=== PATIENT | male | born 1965 | race Caucasian/White ===

== ENCOUNTER 2025-05-20 13:36 | Inpatient (IN) | payer MEDICARE, SELFPAY ==
[2025-05-20 13:36] VITALS: BP 150/90; PULSE 89; RESP 18; TEMP 37.1; O2SAT 100; BMI 37.0
--- NOTE | 2025-05-20 14:09 | US_ITS ---
PROCEDURE: GALLBLADDER 05/20/2025 REASON FOR EXAM: PAIN RUQ TECHNIQUE: Procedure Code: USGB Modality: US Procedure: GALLBLADDER FINDINGS: Liver: Length 16.8 cm, mildly enlarged. Medial left hepatic lobe lesion measuring 2.5 x 2.2 x 1.7 cm appears hypoechoic and solid without posterior acoustic enhancement. A second left hepatic lesion measuring 1.4 x 1.4 x 1.0 cm appears cystic with posterior through transmission. Background hepatic echogenicity and color flow are within normal limits. Gallbladder: Length 8.1 cm. Wall thickness 1.8 mm. Trace pericholecystic fluid present. No gallstones or wall thickening. Sonographic Land sign negative. Bile ducts: Common bile duct measures 4.5 mm, within normal limits. No intrahepatic biliary duct dilatation. Pancreas: Poorly visualized due to overlying bowel gas. Right kidney: Size 10.5 x 3.5 x 5.4 cm. Cortical thickness approximately 1.9 cm. Two simple cysts, largest 7.1 x 7.0 x 6.7 cm. No calculi or hydronephrosis. Ascites: None visualized. US/Gallbladder IMPRESSION: Medial left hepatic lobe 2.5 x 2.2 x 1.7 cm solid hypoechoic lesion without pos terior through transmission likely indicates a true solid hepatic lesion rather than a cyst. Additional 1.4 x 1.4 x 1.0 cm simple cyst in the left hepatic lobe. Trace pericholecystic fluid with normal gallbladder wall and negative Land si gn may represent nonspecific or reactive changes; no sonographic evidence of acute cholecystitis. Common bile duct within normal limits at 4.5 mm. Right renal cysts without hydronephrosis or nephrolithiasis. Recommend multiphasic contrast-enhanced MRI of the liver (preferred) or contras t-enhanced CT for characterization of the solid hepatic lesion. Correlate with liver function tests and relevant tumor markers (AFP, CEA, CA 19-9) as clinically indicated. Comparison with prior imaging if available. Reading Location: [address]
--- NOTE | 2025-05-20 14:10 | ED.VIS.GI ---
HPI HPI - GI History of Present Illness Chief Complaint: Abd Pain Informant: patient and family Narrative Narrative: Patient is a 59-year-old male with a history of pancreatitis presenting with abdominal pain. Patient is accompanied by his who is supplementing history. - Reports intermittent abdominal pain for the past week, initially localized to the mid-abdomen and now radiating to the RUQ. - Pain onset is typically about 30 minutes after eating and is described as steady. - This morning, pain worsened significantly, making it difficult to breathe and talk. - Denies radiation to the back or shoulder. - Associated symptoms include frequent burping and one episode of emesis at the onset of pain; denies ongoing nausea. - Reports difficulty with bowel movements, having not had a bowel movement in two days; took a laxative with minimal relief. - Denies hematochezia, melena, dysuria, cough, or fever. - Has not consumed alcohol in several years; pain exacerbated after drinking a non-alcoholic beverage. - History of pancreatitis several years ago, reportedly attributed to alcohol use. - Denies any previous abdominal surgeries. [facility] Medical History (Updated 05/20/25 @ 18:[address] Ric Johnson MD) Hypertension Home Medications ?Medication ?Instructions ?Recorded ?Last Taken ?Type amlodipine 10 mg tablet 10 mg PO DAILY 05/20/25 Unknown History Allergy/AdvReac Type Severity Reaction Status Date / Time Penicillins (PCN) Allergy Intermediate PT UNSURE Verified 05/20/25 13:38 OF REACTION Social History Smoking Status: Current every day smoker tobacco type: smokeless tobacco ROS ROS ED Constitutional Constitutional ED: Denies chills or fever(s) Eyes Eyes: Denies change in vision or diplopia ENT ENT ED: Denies rhinorrhea or sore throat Cardiovascular Cardiovascular: Denies chest pain or palpitations Respiratory/Chest Respiratory/Chest: Reports other Details: Dyspneic when pain is bad and hurts more in his abdomen to breathe ; Denies cough Gastrointestinal Gastrointestinal: Reports as per HPI, abdominal pain, nausea and vomiting; Denies diarrhea, hematemesis, hematochezia or melena Genitourinary Genitourinary ED: Denies dysuria or hematuria Musculoskeletal Musculoskeletal: Denies back pain or neck pain Integumentary Denies abscess or rash Neurologic Neurologic: Denies headache(s), paresthesias or weakness Psychiatric Psychiatric: Denies anxiety or suicidal thoughts EXAM Physical Exam Const Vital Signs: 05/20/25 13:36 05/20/25 15:36 05/20/25 17:00 Temperature 98.7 F Temperature Source Oral Pulse Rate 89 66 85 Respiratory Rate 18 16 15 Blood Pressure 150/90 H 122/78 H 128/73 H Blood Pressure Mean 110 92 91 Pulse Ox 100 96 99 Oxygen Delivery Method Room Air Room Air Room Air 05/20/25 18:59 Temperature 99.2 F H Temperature Source Pulse Rate 95 Respiratory Rate 20 H Blood Pressure 138/87 H Blood Pressure Mean 104 Pulse Ox 100 Oxygen Delivery Method Positive well nourished and well developed General Appearance ED: well developed and NAD HEENT Reports moist mucous membranes normocephalic and atraumatic Eyes PERRL and EOMs intact bilaterally Neck full ROM and supple Resp normal respiratory effort and clear to auscultation bilaterally Cardio regular rate, regular rhythm and no murmurs GI non-distended GI Narrative: Very tender in the right upper quadrant positive Land, also tender in epigastrium but not as bad otherwise benign abdomen. No pulsatile mass. No distention. No Hammon sign. Auscultation: normoactive bowel sounds Palpation: soft Back/Spine no CVA tenderness General Back: other FROM Extremity normal to inspection General Extremety ED: Negative for edema, pulses abnormal or tenderness General Extremity: Negative for edema or pulses abnormal Neuro oriented x3, CN's II-XII intact bilaterally and no sensory deficits noted Sensorium / Orientation: awake and alert Motor Exam: strength 5/5 throughout Psych mental status grossly normal and thought process normal Skin no rashes or lesions noted and no wounds MDM MDM MDM Narrative Medical decision making narrative: Assessment: The patient is a 59-year-old male with prior episode of pancreatitis several years ago presenting for one week of post-prandial right upper quadrant abdominal pain, acutely worse this morning and pleuritic with deep inspiration. Differential considered included biliary pathology, upper GI causes, kidney stone, constipation, and pneumonia; kidney stone, constipation, and pneumonia are less likely based on history and imaging. Elevated lipase (266) and CT findings of an ill-defined, inflamed pancreatic head support acute pancreatitis as the most likely diagnosis. Indeterminate hepatic and pancreatic lesions noted on imaging require further inpatient evaluation. Plan: - IV morphine administered for analgesia - IV ketorolac administered - IV fluids given - Empiric antibiotics initiated - Admit to hospital for further imaging and gastroenterology evaluation of acute pancreatitis with indeterminate hepatic/pancreatic lesions Diagnostics: - Labs: WBC 13.2 K/?L with left shift, no bandemia; lipase 266 U/L (ULN 75); abnormal liver enzymes (values not specified); urinalysis normal - Chest X-ray, two views: no acute pneumonia; radiology notes infiltrate vs atelectasis, more consistent with atelectasis given exam - Gallbladder ultrasound: pericholecystic fluid present; no cholelithiasis or acute cholecystitis; ~2 cm indeterminate hepatic soft-tissue mass - CT abdomen/pelvis with IV contrast: ill-defined enlarged pancreatic head with multilobulated hypodense lesion and surrounding inflammation consistent with acute pancreatitis, possible developing pseudocyst/necrosis; upstream ductal dilation?cannot exclude pancreatic head neoplasm; wedge-shaped peripheral hepatic hyperenhancing foci?differential perfusion abnormality vs infectious vs metastatic Reevaluations: - After IV morphine, ketorolac, and fluids, pain improved and patient resting comfortably PROBLEMS ADDRESSED - [x] Patient presents with a problem that potentially represents a highly morbid condition with a possible threat to life or bodily function: Acute pancreatitis; Hepatic lesion DATA REVIEWED AND ANALYZED Category 1 - Additional history was required and obtained from: - [ ] Family/Friends - [ ] EMS - [ ] PCP/Specialist - Prior external documentation reviewed: - [ ] H&P - [ ] Clinic - [ ] Director Regulatory Affairs - [ ] DC Summary - [ ] Procedure - [ ] PDMP - Prior test results reviewed: - [ ] Serum labs - [ ] Radiographs - [ ] EKGs - [x] Tests were ordered and the results were independently reviewed by me: Chest x-ray; Ultrasound of the gallbladder; CT scan with IV contrast - [ ] Tests considered but not ordered Category 2 - [x] Tests were independently interpreted by me: - Chest x-ray: Two-view chest x-ray showed normal findings with no evidence of acute pneumonia and suggested atelectasis when correlated with exam findings, independently interpreted by Ric ty. - Ultrasound of the gallbladder: Demonstrated pericholecystic fluid without signs of acute cholecystitis or cholelithiasis and revealed an approximately 2 centimeter soft tissue mass in the liver, independently interpreted by Ric ty. - CT scan with IV contrast: Revealed an ill-defined pancreatic head enlargement with a multilobulated, hypodense lesion and surrounding inflammation consistent with acute pancreatitis (possibly developing pseudocyst or necrosis). Radiology also noted upstream ductal dilation?raising concern for an underlying pancreatic head neoplasm?and identified wedge-shaped peripheral hepatic hyperenhancing foci (differential includes hepatic abscess versus perfusion-related abnormality), independently interpreted by me, Ric Johnson. Category 3 - Discussion of management with another professional: - [x] Admitting service ? Discussed admission and further evaluation with the hospitalist for additional workup given the concerning imaging and laboratory findings. PATIENT MANAGEMENT - [x] Considered hospitalization or emergent surgery/procedure: Admission was considered and planned for further evaluation given the imaging findings suggestive of acute pancreatitis with possible complications and the indeterminate hepatic lesion. - [x] Controlled parenteral medications or medications requiring intensive monitoring were administered: Morphine was administered for pain control. - [ ] Patient received controlled parenteral medications by EMS that required continued intensive monitoring in the emergency department History & Record Review Discussion w/independent historian: Patient, Family and Significant other Lab Data Attestation: I reviewed the patient's lab results. Labs: Laboratory Results - last 24 hr 05/20/25 05/20/25 13:54 15:55 WBC 13.2 H RBC 5.43 Hgb 16.0 Hct 45.2 MCV 83.2 MCH 29.5 MCHC 35.4 RDW Std Deviation 38.6 RDW Coeff of Malia 12.8 Plt Count 330 MPV 9.3 Immature Gran % (Auto) 0.500 Neut % (Auto) 80.9 H Lymph % (Auto) 11.3 L [place] % (Auto) 5.5 Eos % (Auto) 1.5 Baso % (Auto) 0.3 Absolute Neuts (auto) 10.7 H Absolute Lymphs (auto) 1.50 Nucleated RBC % 0 Sodium 137 Potassium 3.6 Chloride 98 Carbon Dioxide 26.4 Anion Gap 12 BUN 14 Creatinine 0.86 Estim Creat Clear Calc 89.71 Est GFR (MDRD) Non-Af 101 BUN/Creatinine Ratio 16.7 Glucose 139 H Calcium 9.3 Total Bilirubin 0.50 AST 16 ALT 16 Alkaline Phosphatase 74 Total Protein 7.5 Albumin 4.3 Globulin 3.2 Albumin/Globulin Ratio 1.3 Lipase 266 H Urine Color Yellow Urine Clarity Clear Urine pH 6.0 Ur Specific Rolfe 1.020 Urine Protein 30 H Urine Glucose (UA) Normal Urine Ketones 5 H Urine Occult Blood Negative Urine Nitrite Negative Urine Bilirubin Negative Urine Urobilinogen 1 H Ur Leukocyte Esterase Negative Urine RBC 0 SEEN Urine WBC 0-5 SEEN Ur Squamous Epith Cells 0 SEEN Urine Bacteria RARE Urine Mucus 2+ Radiography Diagnostic Testing: Clinical Impression(s) from Imaging Studies Gallbladder Ultrasound 05/20/25 14:09 IMPRESSION: Medial left hepatic lobe 2.5 x 2.2 x 1.7 cm solid hypoechoic lesion without posterior through transmission likely indicates a true solid hepatic lesion rather than a cyst. Additional 1.4 x 1.4 x 1.0 cm simple cyst in the left hepatic lobe. Trace pericholecystic fluid with normal gallbladder wall and negative Land sign may represent nonspecific or reactive changes; no sonographic evidence of acute cholecystitis. Common bile duct within normal limits at 4.5 mm. Right renal cysts without hydronephrosis or nephrolithiasis. Recommend multiphasic contrast-enhanced MRI of the liver (preferred) or contrast-enhanced CT for characterization of the solid hepatic lesion. Correlate with liver function tests and relevant tumor markers (AFP, CEA, CA 19-9) as clinically indicated. Comparison with prior imaging if available. Reading Location: [address] Chest X-Ray 05/20/25 14:50 IMPRESSION: Mild increased markings at the lung bases worse at the left lung base suggestive of either linear atelectasis and/or early infiltrates. Radiographic follow-up recommended. Reading Location: [id number] Abdomen/Pelvis CT 05/20/25 16:42 IMPRESSION: 1. Ill-defined pancreatic head enlargement with multilobulated hypodense lesion and surrounding inflammation. Primary consideration includes acute pancreatitis with developing pseudocyst or necrosis. Given upstream ductal dilation and parenchymal atrophy, an underlying pancreatic head neoplasm must be considered. Recommend correlation with follow-up pancreatic MRI. 2. Indeterminate enhancing lesion in liver segment 4B with central hypodensity and surrounding hyperemia. Consider hepatic abscess versus hypervascular metastasis. 3. Peripheral wedge-shaped hyperenhancing hepatic foci, likely perfusion related, though infectious or metastatic foci are not entirely excluded. Reading Location: [id number] Management Discussion w/another healthcare provider: Hospitalist Discharge Plan Dx/Rx/DC Orders Clinical Impression: Acute pancreatitis, Hepatic lesion, Leukocytosis, Acute upper abdominal pain Disposition Disposition: Acute Care Hospital [facility]
[2025-05-20 14:30] LABS: Hematocrit 45.2 % (40-54); Hemoglobin 16.0 g/dL (13.0-16.5); Immature Granulocytes Count 0.060 X10^3/uL (0.0-0.0); Mean Corp Hgb Conc 35.4 g/dL (32-36); Mean Corpuscular Volume 83.2 fL (80-94); Mean Platelet Vol. 9.3 fl (6.2-12.0); NRBC Flagged by Analyzer 0 % (0-5); Platelet Count 330 K/mm3 (150-450); RBC Distribution Width CV 12.8 % (11.6-14.6); RBC Distribution Width SD 38.6 fl (35.1-43.9); Red Blood Count 5.43 M/mm3 (4.6-6.2); White Blood Count 13.2 K/mm3 (4.4-11.0)
[2025-05-20] MEDS: 0.9% Normal Saline (1000mL) 1,000 ML 125 ML IV ×3 (14:31→21:47)
--- NOTE | 2025-05-20 14:50 | RAD_ITS ---
PROCEDURE: CHEST PA AND LATERAL 05/20/2025 REASON FOR EXAM: SOB, RUQ PAIN TECHNIQUE: Procedure Code: RADCXR Modality: DX Procedure: CHEST PA AND LATERAL COMPARISON: None FINDINGS: Hardware: None Heart: The heart is nonenlarged. Mediastinum: The mediastinal contour is unremarkable. Lungs: Increased markings at both lung bases more pronounced in the left lung base suggestive of either early bibasilar atelectasis and/or early infiltrates. Scattered calcified granulomas. Bones: Degenerative changes are identified within the thoracic spine. RAD/Chest PA and Lateral IMPRESSION: Mild increased markings at the lung bases worse at the left lung base suggestiv e of either linear atelectasis and/or early infiltrates. Radiographic follow-up recommended. Reading Location: [place] [id number]
[2025-05-20 14:53] LABS: AST(SGOT) 16 U/L (<=37); Alanine Aminotransfer ALT/SGPT 16 U/L (<=46); Albumin, Serum 4.3 g/dL (3.5-5.0); Alkaline Phosphatase 74 U/L (40-129); Anion Gap 12 (5-15); BUN 14 mg/dL (4-19); BUN/Creat Ratio 16.7 RATIO (10-20); Calcium,Total 9.3 mg/dL (7.6-11.0); Carbon Dioxide 26.4 mmol/L (21.0-32.0); Chloride 98 mmol/L (98-108); Estimated Creatinine Clearance 89.71 ml/min (50-250); Globulin 3.2 g/dL (2.2-4.2); Glucose 139 mg/dL (70-99); Lipase 266 U/L (13-75); Potassium 3.6 mmol/L (3.3-5.1)
[2025-05-20 15:36] VITALS: BP 122/78; PULSE 66; RESP 16; O2SAT 96
[2025-05-20 15:58] LABS: Red Blood Cells-Urine 0 SEEN /hpf (0-5); Squamous Epithelial Cells - UA 0 SEEN /hpf (0-5)
[2025-05-20 16:00] LABS: Color, Urine Yellow (Yellow); Glucose, Dipstick Normal (Normal); Ketone-Dipstick 5 mg/dl (Negative); Leukocyte Esterase-Dipstick Negative /ul (Negative); Nitrite-Dipstick Negative (Negative); Occult Blood-Urine Negative /ul (Negative); Protein-Dipstick 30 mg/dl (Negative); Specific Gravity, Urine 1.020 (1.002-1.030); Urine Bilirubin Dipstick Negative (Negative)
[2025-05-20 16:15] LABS: Mucous, Urine 2+ /hpf (<or=2+)
--- NOTE | 2025-05-20 16:42 | CT_ITS ---
PROCEDURE: ABDOMEN/PELVIS W IV CONT ONLY 05/20/2025 REASON FOR EXAM: EPIG/RUQ PAIN W/ MEALS for 1 week, ABN U/S TECHNIQUE: Procedure Code: [id number] Modality: CT Procedure: ABDOMEN/PELVIS W IV CONT ONLY Coronal and Sagittal reconstruction series were provided. CONTRAST: Isovue-300 VOLUME: 100 mL One or more dose reduction techniques were used (e.g., Automated exposure control, adjustment of the mA and/or kV according to patient size, use of iterative reconstruction technique. RADIATION DOSE SUMMARY: CTDlvol: 9.97, 13.81 mGy DLP: 795.12 mGycm COMPARISON: US gallbladder, 05/20/2025 FINDINGS: LUNG BASES: Minimal dependent atelectasis bilaterally. Right lower lobe calcified granulomas LIVER: Enhancing lesion measuring 2.2 x 2.7 cm present in segment 4B, demonstrating central hypoattenuation and surrounding parenchymal hyperemia. Several additional peripheral, wedge-shaped foci of hyperenhancement are identified, the largest measuring 2.3 cm. GALLBLADDER: Unremarkable. No calcified stone. BILE DUCTS: No ductal dilation. PANCREAS: The pancreatic head is enlarged and poorly defined, with surrounding inflammatory fat stranding. A multilobulated low attenuating lesion measuring 2.5 x 2.9 cm is seen within the pancreatic head. The main pancreatic duct is mildly dilated within the body and tail up to 4.5 mm, with distal parenchymal atrophy. SPLEEN: Unremarkable. ADRENAL GLANDS: Unremarkable. KIDNEYS: The kidneys enhance symmetrically. Multiple hypodense right renal lesions, the largest is 8.1 cm, likely cysts. Hypodense 0.5 cm left renal lesion, too small to further characterize. No hydronephrosis or hydroureter. STOMACH AND BOWEL: Wall thickening of the gastric pylorus and proximal duodenum with adjacent fat stranding, likely reactive to the adjacent pancreatic inflammation. No obstruction or perforation. Few scattered colonic diverticula. No CT evidence of colitis or acute diverticulitis. APPENDIX: Normal-appearing appendix. No CT evidence for appendicitis. RETRO/PERITONEUM: Mild pelvic fluid. No free air or focal fluid collections. LYMPH NODES: No lymphadenopathy. PELVIC ORGANS: Unremarkable as visualized. VASCULATURE: No aortic aneurysm. ABDOMINAL WALL AND SOFT TISSUES: Small fat-containing umbilical and bilateral inguinal hernias. BONES: No fracture or suspicious osseous abnormality. Degenerative changes of the spine. CT/Abdomen/Pelvis W IV Cont ONLY IMPRESSION: 1. Ill-defined pancreatic head enlargement with multilobulated hypodense lesio n and surrounding inflammation. Primary consideration includes acute pancreatitis with developing pseudocyst or necrosi s. Given upstream ductal dilation and parenchymal atrophy, an underlying pancreatic head neoplasm must be considered. Recommend correlation with follow-up pancreatic MRI. 2. Indeterminate enhancing lesion in liver segment 4B with central hypodensity and surrounding hyperemia. Consider hepatic abscess versus hypervascular metastasis. 3. Peripheral wedge-shaped hyperenhancing hepatic foci, likely perfusion relat ed, though infectious or metastatic foci are not entirely excluded. Reading Location: [id number]
[2025-05-20 17:00] VITALS: BP 128/73; PULSE 85; RESP 15; O2SAT 99
[2025-05-20] MEDS: Cefepime HCl 2 GM in 0.9% Normal Saline (100mL MB+) 100 ML IV (18:56)
[2025-05-20 18:59] VITALS: BP 138/87; PULSE 95; RESP 20; TEMP 37.3; O2SAT 100
--- NOTE | 2025-05-20 19:07 | HP.PCM.HOS_ITS ---
HPI - General General Date of Admission: 05/20/25 Date of Service: 05/20/25 Chief Complaint: abdominal pain HPI Narrative KRISH GAONA, is a 59 M with a PMH as outlined who presents via the ED on with a complaitn of abdominal pain for several days. It is mainly epigatric and in the right upper quadrant also. Pain was [id number] by eating. HE had had pancreatitis in the past and it was attributed to alcohol then. He however has not had a drink in several years. He denied any nausea, fever or chills. Pain did not radiate tot he back or shoulder but radiated to the right upper quadrant. Review of systems was otherwise negative. Vitals in the ED were BP of 138/87, [place] of 95, RR of 20 and temp of 99.2F. he was saturating at 100% on room air. CBC showed Hb of 16, wbc of 13.2 and platelets of 330. Chemistry showed sodium of 137, potassium of 3.6 andbicarb of 26.4. Cr was 0.86. Lipase was 266; liver profile was normal. Urinalysis showed no evidence of UTI. Gallbladder ultrasound showed a medial hepatic left lobe hypoechoic lesion measuring 2.5 x 2.2 x 1.7 cm likely indicating a true solid hepatic lesion rather than list and an additional 1.4 x 1.4 x 1 cm simple cyst in the left hepatic lobe. There was trace pericholecystic fluid with normal gallbladder and negative Land sign and no sonographic evidence of acute cholecystitis and common bile duct was within normal limits at 4.[address] abdomen and pelvis with contrast showed an ill-defined pancreatic head enlargement with multilobulated hypodense lesion and surrounding inflammation with primary consideration including acute pancreatitis with developing pseudocyst or necrosis and given ductal dilation and parenchymal atrophy and underlying pancreatic head neoplasm must be considered an indeterminate enhancing lesion in the liver with central hypodensity and surrounding hyperemia consider hepatic abscess versus hyper vascular metastasis and peripheral wedge- shaped hyperenhancing hepatic foci likely perfusional related though infectious or metastatic foci are not entirely excluded. He has been admitted to be managed for acute pancreatitis of unclear etiology. [facility] Medical History Hypertension Home Medications ?Medication ?Instructions ?Recorded ?Last Taken ?Type amlodipine 10 mg tablet 10 mg PO DAILY 05/20/25 Unkn own History Allergy/AdvReac Type Severity Reaction Status Date / Time Penicillins (PCN) Allergy Intermediate PT UNSURE Verified 05/20/25 13:38 OF REACTION Social History Smoking Status: Never smoker ROS Constitutional Constitutional: Reports fatigue and malaise; Denies anorexia, chills, fever(s) or weakness Eyes Eyes: Denies change in vision ENT HEENT: Denies dysphagia, headache(s) or sore throat Cardiovascular Cardiovascular: Denies chest pain, dyspnea on exertion, edema, lightheadedness, orthopnea, palpitations, rapid heart rate or syncope Respiratory/Chest Respiratory/Chest: Denies cough, dyspnea, shortness of breath at rest or shortness of breath with exertion Gastrointestinal Gastrointestinal: Reports abdominal pain; Denies constipation, diarrhea, nausea or vomiting Genitourinary Genitourinary: Denies dysuria Neurologic Neurologic: Denies confusion, dizziness, focal weakness, headache(s), numbness, seizures or syncope Vital Signs Vital Signs Vital Signs: 05/20/25 13:36 05/20/25 15:36 05/20/25 17:00 Temperature 98.7 F Temperature Source Oral Pulse Rate 89 66 85 Respiratory Rate 18 16 15 Blood Pressure 150/90 H 122/78 H 128/73 H Blood Pressure Mean 110 92 91 Pulse Ox 100 96 99 Oxygen Delivery Method Room Air Room Air Room Air 05/20/25 18:59 Temperature 99.2 F H Temperature Source Pulse Rate 95 Respiratory Rate 20 H Blood Pressure 138/87 H Blood Pressure Mean 104 Pulse Ox 100 Oxygen Delivery Method Weight Weight: 195 lb 14.4 oz Body Mass Index (BMI) 37.0 Physical Exam Const alert, oriented x3, no apparent distress and average body habitus General Appearance: cooperative HEENT normocephalic, head/scalp atraumatic, moist oral mucous membranes and oropharynx normal Mouth: oral and palatal mucosa normal Eyes PERRL, EOMs intact bilaterally and conjunctivae normal Neck no lymphadenopathy and supple Resp normal respiratory effort, no retractions, no use of accessory muscles and clear to auscultation bilaterally Cardio regular rate, regular rhythm, S1 normal heart sound, S2 normal heart sound and no murmurs GI normal to inspection, nondistended, normoactive bowel sounds and soft to palpation GI Narrative: moderate epigastric and RUQ tenderness, no guarding or rebound tenderness Extremity normal to inspection, full ROM and no clubbing, cyanosis or edema Neuro oriented x3, CN's II-XII intact bilaterally, moves all extremities and no focal motor deficits Sensorium / Orientation: awake and alert Motor Exam: strength 5/5 throughout Psych affect normal Results Lab / Micro Data 05/20/25 13:54 05/20/25 13:54 Labs: Laboratory Results - last 24 hr 05/20/25 13:54: WBC 13.2 H, RBC 5.43, Hgb 16.0, Hct 45.2, MCV 83.2, MCH 29.5, MCHC 35.4, RDW Std Deviation 38.6, RDW Coeff of [place] 12.8, Plt Count 330, MPV 9.3, Immature Gran % (Auto) 0.500, Neut % (Auto) 80.9 H, Lymph % (Auto) 11.3 L, [place] % (Auto) 5.5, Eos % (Auto) 1.5, Baso % (Auto) 0.3, Absolute Neuts (auto) 10.7 H, Absolute Lymphs (auto) 1.50, Nucleated RBC % 0, Sodium 137, Potassium 3.6, Chloride 98, Carbon Dioxide 26.4, Anion Gap 12, BUN 14, Creatinine 0.86, Estim Creat Clear Calc 89.71, Est GFR (MDRD) Non-Af 101, BUN/Creatinine Ratio 16.7, Glucose 139 H, Calcium 9.3, Total Bilirubin 0.50, AST 16, ALT 16, Alkaline Phosphatase 74, Total Protein 7.5, Albumin 4.3, Globulin 3.2, Albumin/Globulin Ratio 1.3, Lipase 266 H 05/20/25 15:55: Urine Color Yellow, Urine Clarity Clear, Urine pH 6.0, Ur Specific [place] 1.020, Urine Protein 30 H, Urine Glucose (UA) Normal, Urine Ketones 5 H, Urine Occult Blood Negative, Urine Nitrite Negative, Urine Bilirubin Negative, Urine Urobilinogen 1 H, Ur Leukocyte Esterase Negative, Urine RBC 0 SEEN, Urine WBC 0-5 SEEN, Ur Squamous Epith Cells 0 SEEN, Urine Bacteria RARE, Urine Mucus 2+ Imaging Radiology Impression Gallbladder Ultrasound 05/20/25 14:09 IMPRESSION: Medial left hepatic lobe 2.5 x 2.2 x 1.7 cm solid hypoechoic lesion without posterior through transmission likely indicates a true solid hepatic lesion rather than a cyst. Additional 1.4 x 1.4 x 1.0 cm simple cyst in the left hepatic lobe. Trace pericholecystic fluid with normal gallbladder wall and negative Land sign may represent nonspecific or reactive changes; no sonographic evidence of acute cholecystitis. Common bile duct within normal limits at 4.5 mm. Right renal cysts without hydronephrosis or nephrolithiasis. Recommend multiphasic contrast-enhanced MRI of the liver (preferred) or contrast-enhanced CT for characterization of the solid hepatic lesion. Correlate with liver function tests and relevant tumor markers (AFP, CEA, CA 19-9) as clinically indicated. Comparison with prior imaging if available. Reading Location: [address] Chest X-Ray 05/20/25 14:50 IMPRESSION: Mild increased markings at the lung bases worse at the left lung base suggestive of either linear atelectasis and/or early infiltrates. Radiographic follow-up recommended. Reading Location: [facility] Abdomen/Pelvis CT 05/20/25 16:42 IMPRESSION: 1. Ill-defined pancreatic head enlargement with multilobulated hypodense lesion and surrounding inflammation. Primary consideration includes acute pancreatitis with developing pseudocyst or necrosis. Given upstream ductal dilation and parenchymal atrophy, an underlying pancreatic head neoplasm must be considered. Recommend correlation with follow-up pancreatic MRI. 2. Indeterminate enhancing lesion in liver segment 4B with central hypodensity and surrounding hyperemia. Consider hepatic abscess versus hypervascular metastasis. 3. Peripheral wedge-shaped hyperenhancing hepatic foci, likely perfusion related, though infectious or metastatic foci are not entirely excluded. Reading Location: [facility] Assessment & Plan Assessment/Plan (1) Acute pancreatitis: (2) Hepatic lesion: PLAN: Plan #Acute pancreatitis of unclear etiology * Admit to [facility]. Admitted with a complaint of epigastric pain which radiated to the right upper quadrant. He denies any alcohol usage. * Gallbladder ultrasound showed medial hepatic left lobe solid hypoechoic lesion measuring 2.5 x 2.2 x 1.7 cm likely indicating a true solid hepatic lesion rather than a cyst and an additional 1.4 x 1.4 x 1 cm simple cyst in the left hepatic lobe. There was provide trace pericholecystic fluid with normal gallbladder wall and negative Land sign which may represent nonspecific or reactive changes and no evidence of cholecystitis and common bile duct within normal limits of 4.5 mm. * CT of the abdomen and pelvis with IV contrast only showed ill-defined pancreatic head enlargement with multilobulated hypodense lesion and surrounding inflammation in primary consideration including acute pancreatitis with developing pseudocyst or necrosis though given upstream ductal dilation and parenchymal atrophy and underlying pancreatic head neoplasm has been considered. There is also an indeterminate enhancing lesion in the liver with central hypodensity and surrounding hyperemia to consider hepatic abscess versus hypervascular metastasis and peripheral wedge-shaped hyperenhancing hepatic foci likely perfusional related though infectious or metastatic foci are not entirely excluded. * Lipase was only minimally elevated at 266. * Keep n.p.o. for now. Hydrate with IV fluids. Started on IV cefepime due to concerns for possible hepatic abscess; will continue * Will order CA 19-9 and CEA antigen to evaluate for possible liver and pancreatic malignancies in light of the CT and gallbladder findings. * Order MRI of the abdomen with pancreatic protocol to evaluate for pancreatic cancer and also evaluate the liver lesions. Based on the results of the MRI we will then consider gastroenterology and oncology consultations. * IV morphine as needed for pain. * IV Zofran * #Hypertension: on amlodipine. IV hydralazine prn DVT prophylaxis: Lovenox #CODE STATUS: Full code * Patient counseled extensively about different types of CODE STATUS including full code, DNR CCA and DNR CCA. * Patient elects to be full code. * Total [id number] time 16 minutes. Charges/Coding Visit Charges Inpatient E&M: 99360 Init Hosp L3 Procedures Hospitalists Procedures: 36098 Advncd Care Plan 30 Min
[2025-05-20 21:07] VITALS: BMI 38.0
[2025-05-20 21:11] VITALS: BP 109/56; PULSE 76; RESP 16; TEMP 36.9; O2SAT 93
[2025-05-20] MEDS: 0.9% Saline Lock 10 ML Syringe IV (21:46)
[2025-05-21 03:33] VITALS: BP 118/68; PULSE 76; RESP 17; TEMP 36.8; O2SAT 94
[2025-05-21] MEDS: 0.9% Normal Saline (1000mL) 1,000 ML 125 ML IV ×2 (05:00→16:40)
[2025-05-21 07:35] VITALS: BP 121/69; PULSE 77; RESP 17; TEMP 37.1; O2SAT 93
[2025-05-21 07:38] LABS: Hematocrit 38.1 % (40-54); Hemoglobin 13.4 g/dL (13.0-16.5); Immature Granulocytes Count 0.030 X10^3/uL (0.0-0.0); Mean Corp Hgb Conc 35.2 g/dL (32-36); Mean Corpuscular Volume 83.9 fL (80-94); Mean Platelet Vol. 9.3 fl (6.2-12.0); NRBC Flagged by Analyzer 0 % (0-5); Platelet Count 312 K/mm3 (150-450); RBC Distribution Width CV 12.9 % (11.6-14.6); RBC Distribution Width SD 39.2 fl (35.1-43.9); Red Blood Count 4.54 M/mm3 (4.6-6.2); White Blood Count 8.8 K/mm3 (4.4-11.0)
--- NOTE | 2025-05-21 08:00 | MRI_ITS ---
PROCEDURE: MRI ABD WITH AND W/O CONTRAST 05/21/2025 REASON FOR EXAM: LIVER AND PANCREATIC MASS TECHNIQUE: Procedure Code: [id number] Modality: MR Procedure: MRI ABD WITH AND W/O CONTRAST Multiplanar and multisequence images were obtained. CONTRAST: Clariscan VOLUME: 15 mL COMPARISON: CT of the abdomen and pelvis dated 05/20/2025 FINDINGS: Liver: Mild hepatic steatosis in the right liver lobe. There are 3 distinct hypervascular lesions in the liver all of which demonstrate signal characteristics consistent with hemangiomas. These include an 8 mm lesion in segment 4 and a larger 28 x 29 mm lesion in segment 4. A smaller lesions is seen in the right hepatic lobe measuring 11 mm. Patent portal and hepatic veins. No intra or extrahepatic biliary ductal dilatation. Biliary: Normal gallbladder and biliary tree. Pancreas: Heterogeneous enhancing solid mass at the head of the pancreas measuring a proximally 33 x 37 mm. This encases the distal CBD and distal pancreatic duct. Within the head body junction, there is a 21 x 31 mm multi cystic mass lesion which accounts for an infiltrative pattern and abuts the posterior wall of the antrum of the stomach. Persistent induration is noted around the pancreatic head. The pancreatic duct is dilated at the body and tail measuring 7 mm. There is atrophy of the pancreatic body and tail. The main solid mass abuts anterior wall of the portal vein at the confluence with the SMV. And also abuts portions of the SMA and proper hepatic artery. Inflammatory changes are present in the pancreatic head consistent with underlying pancreatitis. Spleen: Normal Adrenals: No mass. Kidneys: Multiple renal cysts. This is a simple 77 x 70 mm cyst arising from the lower pole of the right kidney. There is a somewhat complex hemorrhagic cysts measuring 19 mm in the upper pole of the right kidney. Peritoneum / Retroperitoneum: Lymph Nodes: Small periportal lymph nodes. Major Vessels: Abdominal aorta demonstrates no aneurysm. Inferior vena cava is patent. Bones: Mild multilevel spondylosis. No abnormal enhancement pattern. Lung bases: Atelectatic changes of the lower lobes with small right effusion. MRI/MRI Abd WITH and W/O Contrast IMPRESSION: Heterogeneous enhancing solid mass of the head of the pancreas measuring 37 mm in greatest dimension and concerning for pancreatic neoplasm. This is associated atrophy of the pancreatic tail with di latation of the pancreatic duct. Complex cystic lesion in the head body junction of the pancreas measuring 31 mm which could re flect an extension of the mass or a 2nd separate abnormality. This abuts the posterior wall of the pancreas. There appears to be vascular encasement of the lesion affecting the portal vein and branches of the proper hepatic artery and SMA. Consider ERCP/e ndoscopic ultrasound with fine-needle aspiration for more definite diagnosis. Significant induration of the pancreatic head likely secondary to pancreatitis. 3 enhancing liver lesions consistent with hemangiomas including the largest in the segment 4 of the left liver lobe measuring 29 mm. Reading Location: [id number]
[2025-05-21 09:05] LABS: AST(SGOT) 12 U/L (<=37); Alanine Aminotransfer ALT/SGPT 12 U/L (<=46); Albumin, Serum 3.6 g/dL (3.5-5.0); Alkaline Phosphatase 66 U/L (40-129); Anion Gap 11 (5-15); BUN 14 mg/dL (4-19); BUN/Creat Ratio 15.6 RATIO (10-20); Calcium,Total 8.7 mg/dL (7.6-11.0); Carbon Dioxide 23.2 mmol/L (21.0-32.0); Chloride 103 mmol/L (98-108); Estimated Creatinine Clearance 89.97 ml/min (50-250); Globulin 2.9 g/dL (2.2-4.2); Glucose 112 mg/dL (70-99); Potassium 3.8 mmol/L (3.3-5.1)
--- NOTE | 2025-05-21 09:33 | PN.HOSP_ITS ---
Subjective Subjective Planning for MRI of the abdomen today Objective Data Objective Data Vital Signs: Vital Signs Temp Pulse Resp BP Pulse Ox O2 Del Method 98.7 F 77 17 121/69 H 93 Room Air 05/21/25 07:35 05/21/25 07:35 05/21/25 07:35 05/21/25 07:35 05/21/25 07:35 05/21/25 07:35 Oxygen Delivery Method Room Air Weight: 201 lb 4.513 oz Body Mass Index (BMI) 38.0 Intake & Output: Intake and Output for Last 24 Hours 05/20/25 05/21/25 05/22/25 03:59 03:59 03:59 Intake Total 1456.25 / 1456.25 902.08 / 902.08 Output Total 200 / 200 150 / 150 Balance 1256.25 / 1256.25 752.08 / 752.08 Lab / Micro Data 05/21/25 06:56 05/21/25 06:56 Labs: Laboratory Results - last 24 hr 05/20/25 13:54: WBC 13.2 H, RBC 5.43, Hgb 16.0, Hct 45.2, MCV 83.2, MCH 29.5, MCHC 35.4, RDW Std Deviation 38.6, RDW Coeff of [place]ia 12.8, Plt Count 330, MPV 9.3, Immature Gran % (Auto) 0.500, Neut % (Auto) 80.9 H, Lymph % (Auto) 11.3 L, [place] % (Auto) 5.5, Eos % (Auto) 1.5, Baso % (Auto) 0.3, Absolute Neuts (auto) 10.7 H, Absolute Lymphs (auto) 1.50, Nucleated RBC % 0, Sodium 137, Potassium 3.6, Chloride 98, Carbon Dioxide 26.4, Anion Gap 12, BUN 14, Creatinine 0.86, Estim Creat Clear Calc 89.71, Est GFR (MDRD) Non-Af 101, BUN/Creatinine Ratio 16.7, Glucose 139 H, Calcium 9.3, Total Bilirubin 0.50, AST 16, ALT 16, Alkaline Phosphatase 74, Total Protein 7.5, Albumin 4.3, Globulin 3.2, Albumin/Globulin Ratio 1.3, Lipase 266 H 05/20/25 15:55: Urine Color Yellow, Urine Clarity Clear, Urine pH 6.0, Ur Specific [place] 1.020, Urine Protein 30 H, Urine Glucose (UA) Normal, Urine Ketones 5 H, Urine Occult Blood Negative, Urine Nitrite Negative, Urine Bilirubin Negative, Urine Urobilinogen 1 H, Ur Leukocyte Esterase Negative, Urine RBC 0 SEEN, Urine WBC 0-5 SEEN, Ur Squamous Epith Cells 0 SEEN, Urine Bacteria RARE, Urine Mucus 2+ 05/21/25 06:56: WBC 8.8, RBC 4.54 L, Hgb 13.4, Hct 38.1 L, MCV 83.9, MCH 29.5, MCHC 35.2, RDW Std Deviation 39.2, RDW Coeff of [place] 12.9, Plt Count 312, MPV 9.3, Immature Gran % (Auto) 0.300, Neut % (Auto) 67.0, Lymph % (Auto) 21.3, [place] % (Auto) 7.5, Eos % (Auto) 3.6, Baso % (Auto) 0.3, Absolute Neuts (auto) 5.9, Absolute Lymphs (auto) 1.88, Nucleated RBC % 0, Sodium 137, Potassium 3.8, Chloride 103, Carbon Dioxide 23.2, Anion Gap 11, BUN 14, Creatinine 0.87, Estim Creat Clear Calc 89.97, Est GFR (MDRD) Non-Af 101, BUN/Creatinine Ratio 15.6, G lucose 112 H, Calcium 8.7, Total Bilirubin 0.64, AST 12, ALT 12, Alkaline Phosphatase 66, Total Protein 6.5, Albumin 3.6, Globulin 2.9, Albumin/Globulin Ratio 1.3 Radiography Diagnostic Testing: Radiology Impression Gallbladder Ultrasound 05/20/25 14:09 IMPRESSION: Medial left hepatic lobe 2.5 x 2.2 x 1.7 cm solid hypoechoic lesion without posterior through transmission likely indicates a true solid hepatic lesion rather than a cyst. Additional 1.4 x 1.4 x 1.0 cm simple cyst in the left hepatic lobe. Trace pericholecystic fluid with normal gallbladder wall and negative Land sign may represent nonspecific or reactive changes; no sonographic evidence of acute cholecystitis. Common bile duct within normal limits at 4.5 mm. Right renal cysts without hydronephrosis or nephrolithiasis. Recommend multiphasic contrast-enhanced MRI of the liver (preferred) or contrast-enhanced CT for characterization of the solid hepatic lesion. Correlate with liver function tests and relevant tumor markers (AFP, CEA, CA 19-9) as clinically indicated. Comparison with prior imaging if available. Reading Location: [address] Chest X-Ray 05/20/25 14:50 IMPRESSION: Mild increased markings at the lung bases worse at the left lung base suggestive of either linear atelectasis and/or early infiltrates. Radiographic follow-up recommended. Reading [facility]/Pelvis CT 05/20/25 16:42 IMPRESSION: 1. Ill-defined pancreatic head enlargement with multilobulated hypodense lesion and surrounding inflammation. Primary consideration includes acute pancreatitis with developing pseudocyst or necrosis. Given upstream ductal dilation and parenchymal atrophy, an underlying pancreatic head neoplasm must be considered. Recommend correlation with follow-up pancreatic MRI. 2. Indeterminate enhancing lesion in liver segment 4B with central hypodensity and surrounding hyperemia. Consider hepatic abscess versus hypervascular metastasis. 3. Peripheral wedge-shaped hyperenhancing hepatic foci, likely perfusion related, though infectious or metastatic foci are not entirely excluded. Reading Location: [facility] Physical Exam Narrative General: Alert, Oriented x3, Cooperative, No apparent distress HEENT: Atraumatic, PERRLA, EOMI, Normocephalic Oral: Moist Mucosa Neck: Supple, No JVD Lungs: Diminished, Normal air movement, No rhonchi, No wheeze, No rales Cardiovascular: Regular rate, Regular Rhythm, Normal S1, Normal S2, No murmurs Abdomen: Soft, mild epigastric tenderness, Non-Distended, No Hepato-splenomegaly Extremities: No edema, Capillary Refill Less than 3 Seconds Skin: No rashes, No breakdown Musculoskeletal: No Tenderness to Palpation of Joints or Extremities Neurological: No focal neurological deficits, moves all extremities Psych/Mental Status: Normal Affect, Appropriate Assessment & Plan Assessment/Plan (1) Acute pancreatitis: (2) Hepatic lesion: PLAN: Plan 1. Acute pancreatitis ? Pancreatitis is likely related to compression from the possible pancreatic head mass, CT does indicate an MRI is indicated which is pending ? There appeared to be cyst in the liver as well as other hypoechoic lesions ?Will consult GI for assistance in evaluation ? CA 19-9 is pending ? Continue with IV fluids and n.p.o. with pain medications ? Continue with cefepime for now as there is concern for possible pseudocyst and necrosis formation on the CT scan in the setting of his pancreatitis though can likely discontinue 24 to 48 hours 2. Essential HTN ? Continue with his home amlodipine ? Monitor make adjustments as necessary DVT: Lovenox Charges/Coding Visit Charges Inpatient E&M: 62299 Subs Hosp L2
--- NOTE | 2025-05-21 10:23 | CASEMGMT ---
Dx:acute pancreatitis LACE:2 6-Clicks:20 Medical record reviewed and patient evaluated for identification of discharge planning needs. Based on this review, at this time criteria are not present to indicate a need for discharge planning. Will remain available to assist with discharge planning needs as identified or requested.
[2025-05-21] MEDS: FLU VACCINE 2025-26(6MOS UP) 45 MCG/0.5 ML SYRINGE IM (10:42)
[2025-05-21 14:00] VITALS: BP 111/56; PULSE 78; RESP 16; TEMP 36.9; O2SAT 93
--- NOTE | 2025-05-21 15:36 | EX.PCM.CON.G ---
Documented by User: JARAD Pickard 05/21/25 20:01 HPI Consult Data Date of Consult: 05/21/25 HPI Narrative Reason for Consultation: pancreatic mass HPI Narrative: Pt presented to the ED with 3 days of epigastric pain. Transaminases, alk phos and bilirubin were within normal limits. Lipase elevated in the 200s. CT abdomen pelvis with ill-defined pancreatic head enlargement with multilobulated hypodense lesion and surrounding inflammation. Primary consideration includes acute pancreatitis with developing pseudocyst or necrosis. Given upstream ductal dilation and pericardial atrophy and underlying pancreatic neoplasm must be considered. MRI concerning for pancreatic neoplasm. Upon interview with the patient, patient endorses a prior history of pancreatitis 4 to 5 years ago. At that time he was told he had a spot on his pancreas and would need an EUS in [place]. He did did not have this done as he could not afford it and could not obtain a ride there. Review of clinisync records shows an MRI from 10/16/23 There has been interval progression of atrophy of the pancreatic body and tail, within residual parenchyma in this area. The pancreatic duct in these regions demonstrates a dilated appearance measuring up to 0.8 cm. There is short segment of focal narrowing of the duct in the pancreatic body measuring 1.1 cm in length, series 7, image 66, no appreciable corresponding obstructing lesion. There are several small dilated side branches, series 7, image 69 through 80 The pancreatic parenchyma in the head and neck is unremarkable. The pancreatic duct in the head and neck is not dilated nor visualize. 1. Persistent pancreatic ductal dilatation with progression of pancreatic parenchymal atrophy in the body and tail. New focal narrowing of the pancreatic duct in the body without appreciable focal lesion. There are several dilated side branches, less conspicuous than prior. Differential is sequela of chronic pancreatitis versus intraductal papillary mucinous neoplasms. 2. Diffuse fatty infiltration of the liver. Pain started a few days ago after eating baked chicken, mashed potatoes and a wheat bun. He felt constipated and took a laxative; however, he did not have any bowel movements. He is passing gas. He vomited a few times before coming to the hospital but has not since being here. He does not drink alcohol on a regular basis. Last alcoholic drink was 4 to 5 years ago. Patient denies any pertinent medical history. He has never had any surgeries. He denies unintentional weight loss, night sweats, fever, or family history of pancreatic cancer. Patient's mother had diabetes and his father had brain cancer. He is presently rating pain 5/10, is visibly uncomfortable and notes his present pain is the same quality and intensity of pain he experienced with previous episode of pancreatitis. [facility] Medical History Hypertension Home Medications ?Medication ?Instructions ?Recorded ?Last Taken ?Type amlodipine 10 mg tablet 10 mg PO DAILY 05/20/25 Unknown History Allergy/AdvReac Type Severity Reaction Status Date / Time Penicillins (PCN) Allergy Intermediate PT UNSURE Verified 05/20/25 13:38 OF REACTION Social History Smoking Status: Never smoker ROS Constitutional Constitutional: Reports systems reviewed and no addt'l complaints, except as documented Eyes Eyes: Denies blurry vision or change in vision ENT HEENT: Reports dizziness; Denies bleeding gums, dry mouth, dysphagia or halitosis Cardiovascular Cardiovascular: Reports abdominal bloating Gastrointestinal Gastrointestinal: Reports abdominal pain, belching, bloating, change in bowel habits, constipation, nausea and vomiting Genitourinary Genitourinary: Denies burning urination, difficulty urinating or scrotal swelling Musculoskeletal Musculoskeletal: Reports abnormal gait Integumentary Integumentary: Denies change in pigmentation, jaundice or unusual bruising Neurologic Neurologic: Denies confusion, memory loss, paresthesias or tremor(s) Psychiatric Psychiatric: Denies abnormal sleep pattern, change in appetite, confusion or memory loss Physical Exam Const alert and oriented x3 Constitutional Narrative: Patient resting in bed, visibly uncomfortable and difficulty taking deep breaths due to worsening abdominal pain. General Appearance: cooperative, well developed and in distress Nutritional Appearance: overweight Neck full ROM General: normal visual inspection Chest inspection of chest normal Resp clear to auscultation bilaterally Resp Narrative: Difficulty taking a deep breath as this exacerbates abdominal pain Effort and Inspection: able to speak in complete sentences and symmetric chest movement Auscultation: clear to auscultation bilaterally Cardio regular rate and regular rhythm GI soft to palpation GI Narrative: ABD round, soft to palpation, epigastric and RUQ tenderness with mild palpation. Auscultation: normoactive bowel sounds Palpation: soft and tender Percussion: normal to percussion Rectal Exam: deferred Extremity Extremity Narrative: BAHENA x4, no edema noted Peripheral Pulses: Yes pulses 2+ throughout Skin no rashes or lesions noted, skin turgor normal and no jaundice General Skin Exam: no breakdown Medical Records Data Attestation: I reviewed the patient's medical records Lab / Micro Data Attestation: I reviewed the patient's lab results. 05/21/25 06:56 05/21/25 06:56 Labs: Laboratory Results - last 24 hr 05/20/25 15:55: Urine Color Yellow, Urine Clarity Clear, Urine pH 6.0, Ur Specific [place] 1.020, Urine Protein 30 H, Urine Glucose (UA) Normal, Urine Ketones 5 H, Urine Occult Blood Negative, Urine Nitrite Negative, Urine Bilirubin Negative, Urine Urobilinogen 1 H, Ur Leukocyte Esterase Negative, Urine RBC 0 SEEN, Urine WBC 0-5 SEEN, Ur Squamous Epith Cells 0 SEEN, Urine Bacteria RARE, Urine Mucus 2+ 05/21/25 06:56: WBC 8.8, RBC 4.54 L, Hgb 13.4, Hct 38.1 L, MCV 83.9, MCH 29.5, MCHC 35.2, RDW Std Deviation 39.2, RDW Coeff of [place] 12.9, Plt Count 312, MPV 9.3, Immature Gran % (Auto) 0.300, Neut % (Auto) 67.0, Lymph % (Auto) 21.3, [place] % (Auto) 7.5, Eos % (Auto) 3.6, Baso % (Auto) 0.3, Absolute Neuts (auto) 5.9, Absolute Lymphs (auto) 1.88, Nucleated RBC % 0, Sodium 137, Potassium 3.8, Chloride 103, Carbon Dioxide 23.2, Anion Gap 11, BUN 14, Creatinine 0.87, Estim Creat Clear Calc 89.97, Est GFR (MDRD) Non-Af 101, BUN/Creatinine Ratio 15.6, Glucose 112 H, Calcium 8.7, Total Bilirubin 0.64, AST 12, ALT 12, Alkaline Phosphatase 66, Total Protein 6.5, Albumin 3.6, Globulin 2.9, Albumin/Globulin Ratio 1.3, CA 19-9 Antigen Cancelled, CA 19-9 Serial Monitor Cancelled Imaging Radiology Impression Gallbladder Ultrasound 05/20/25 14:09 IMPRESSION: Medial left hepatic lobe 2.5 x 2.2 x 1.7 cm solid hypoechoic lesion without posterior through transmission likely indicates a true solid hepatic lesion rather than a cyst. Additional 1.4 x 1.4 x 1.0 cm simple cyst in the left hepatic lobe. Trace pericholecystic fluid with normal gallbladder wall and negative Land sign may represent nonspecific or reactive changes; no sonographic evidence of acute cholecystitis. Common bile duct within normal limits at 4.5 mm. Right renal cysts without hydronephrosis or nephrolithiasis. Recommend multiphasic contrast-enhanced MRI of the liver (preferred) or contrast-enhanced CT for characterization of the solid hepatic lesion. Correlate with liver function tests and relevant tumor markers (AFP, CEA, CA 19-9) as clinically indicated. Comparison with prior imaging if available. Reading Location: [address] Abdomen/Pelvis CT 05/20/25 16:42 IMPRESSION: 1. Ill-defined pancreatic head enlargement with multilobulated hypodense lesion and surrounding inflammation. Primary consideration includes acute pancreatitis with developing pseudocyst or necrosis. Given upstream ductal dilation and parenchymal atrophy, an underlying pancreatic head neoplasm must be considered. Recommend correlation with follow-up pancreatic MRI. 2. Indeterminate enhancing lesion in liver segment 4B with central hypodensity and surrounding hyperemia. Consider hepatic abscess versus hypervascular metastasis. 3. Peripheral wedge-shaped hyperenhancing hepatic foci, likely perfusion related, though infectious or metastatic foci are not entirely excluded. Reading Location: [facility] Abdomen MRI 05/21/25 08:00 IMPRESSION: Heterogeneous enhancing solid mass of the head of the pancreas measuring 37 mm in greatest dimension and concerning for pancreatic neoplasm. This is associated atrophy of the pancreatic tail with dilatation of the pancreatic duct. Complex cystic lesion in the head body junction of the pancreas measuring 31 mm which could reflect an extension of the mass or a 2nd separate abnormality. This abuts the posterior wall of the pancreas. There appears to be vascular encasement of the lesion affecting the portal vein and branches of the proper hepatic artery and SMA. Consider ERCP/endoscopic ultrasound with fine-needle aspiration for more definite diagnosis. Significant induration of the pancreatic head likely secondary to pancreatitis. 3 enhancing liver lesions consistent with hemangiomas including the largest in the segment 4 of the left liver lobe measuring 29 mm. Reading Location: [id number] MRI 10/16/2023 There is diffuse dropout on out of phase imaging, consistent with diffuse fatty infiltration of the liver. T2 hyperintense, T1 hypointense lesion in the segment 4B with centripetal postcontrast filling consistent hemangioma. The lesion measures 2.4 x 3.5 cm, similar to prior. There are similar smaller areas demonstrating postcontrast enhancement following blood pool, similar in distribution to prior, most consistent with additional small hemangiomas. There are several peripheral arterially enhancing wedge-shaped areas in the liver, two at the dome of the liver, series 14 image 10 and 13. Additional two lesions in the right lobe image 23 and 27. These do not persist on the 50 second phase imaging. There is no corresponding washout. These likely representing transient hepatic intensity differences. BILIARY: Gallbladder is present. Common bile duct measures 0.4 cm. PANCREAS: There has been interval progression of atrophy of the pancreatic body and tail, within residual parenchyma in this area. The pancreatic duct in these regions demonstrates a dilated appearance measuring up to 0.8 cm. There is short segment of focal narrowing of the duct in the pancreatic body measuring 1.1 cm in length, series 7, image 66, no appreciable corresponding obstructing lesion. There are several small dilated side branches, series 7, image 69 through 80 The pancreatic parenchyma in the head and neck is unremarkable. The pancreatic duct in the head and neck is not dilated nor visualize. SPLEEN: Normal. No enlargement or focal lesion. 1. Persistent pancreatic ductal dilatation with progression of pancreatic parenchymal atrophy in the body and tail. New focal narrowing of the pancreatic duct in the body without appreciable focal lesion. There are several dilated side branches, less conspicuous than prior. Differential is sequela of chronic pancreatitis versus intraductal papillary mucinous neoplasms. 2. Diffuse fatty infiltration of the liver. Assessment & Plan Assessment/Plan (1) Acute upper abdominal pain: (2) Acute on chronic pancreatitis: (3) Constipation: QUALIFIERS: Constipation type: unspecified constipation type Qualified Code(s): K59.00 - Constipation, unspecified (4) Hepatic hemangioma: (5) Pancreatic mass: PLAN: Plan 59y/o male with a remote history of pancreatitis presents with 1 week of worsening epigastric abdominal pain now radiating to the RUQ, associated with belching, episodes of emesis, and constipation. Laboratory evaluation notable for leukocytosis (WBC 13.2) and mild lipase elevation (266) with otherwise normal liver enzymes and bilirubin. Initial abdominal ultrasound revealed a 2.5 x 2.0 x 1.7 cm solid hypoechoic lesion within the left hepatic lobe without posterior acoustic enhancement, consistent with a true solid hepatic lesion rather than a cyst. A 1.4 x 1.4 x 1.0 cm simple hepatic cyst was also identified, with trace perihepatic fluid, normal gallbladder wall, and a negative sonographic Land sign. CBD measured 4.5 mm. Findings may represent nonspecific or reactive changes without evidence of acute cholecystitis. CT of the abdomen and pelvis with IV contrast demonstrated ill-defined enlargement of the pancreatic head with a multiloculated hypodense lesion and surrounding inflammation, associated with upstream pancreatic duct dilation and parenchymal atrophy. MRI pancreas further delineated a heterogeneously enhancing 37 mm solid mass in the pancreatic head concerning for pancreatic neoplasm, associated with atrophy of the pancreatic tail and ductal dilation. A complex cystic lesion at the head/body junction measuring 31 mm may represent extension of the primary mass versus a separate cystic process. There is vascular encasement involving the portal vein, hepatic artery branches, and the SMA. 3 enhancing hepatic lesions are noted, most consistent with hemangiomas, the largest measuring 29 mm in segment IV. CEA and CA 19-9 are pending. Pancreatic head mass with ductal dilation and parenchymal atrophy, differential including pancreatic adenocarcinoma, chronic pancreatitis with inflammatory mass versus autoimmune (IgG4 related) pancreatitis, which can mimic malignancy both clinically and radiographically. Vascular encasement and upstream atrophy raise concern for malignant etiology, though the chronicity of findings and history of pancreatitis also make benign inflammatory disease a consideration. At present there is no evidence of obstructive jaundice, or cholangitis, and liver enzymes are normal. EUS w/ FNA has been recommended for tissue diagnosis; however, the patient reports inability to travel to any tertiary center where this procedure can be performed. He remains adamant that he cannot arrange transportation for testing. Our facility does not offer EUS capability. - NPO with IVF. - Await tumor markers (CEA, CA 19-9). - IgG4 ordered and will await results. - Recommend EUS with FNA of pancreatic head mass for tissue diagnosis. - Continue supportive care for pain and bowel regimen; monitor for nausea, vomiting, or worsening obstructive symptoms. - I have discussed with patient the importance of EUS to obtain tissue diagnosis to guide management. I have explained without this, we cannot definitively distinguish between malignancy and chronic pancreatitis and therefore cannot appropriately initiate treatment. I have reviewed with Dr. Nevarez and he has recommended ERCP for partial evaluation, PD stent placement, and possible cytology/histology collection (05/22/2025 at 1330). - Recommend coordination with social work to assess potential transportation resources available. If travel remains impossible, would consider alternate diagnostic supportive approaches, such as repeat imaging for progression and continued lab surveillance. Documented by User: [email or web address] Pham 05/21/25 16:42 HPI Consult Data Date of Consult: 05/21/25 HPI Narrative HPI Narrative: Pt presented to the ED with 3 days of epigastric pain. Transaminases, alk phos and bilirubin were within normal limits. Lipase elevated in the 200s. CT abdomen pelvis with ill-defined pancreatic head enlargement with multilobulated hypodense lesion and surrounding inflammation. Primary consideration includes acute pancreatitis with developing pseudocyst or necrosis. Given upstream ductal dilation and pericardial atrophy and underlying pancreatic neoplasm must be considered. Recommend correlation with follow-up pancreatic MRI. MRI concerning for pancreatic neoplasm. Upon interview with the patient, patient endorses a prior history of pancreatitis 4 to 5 years ago. At that time he was told he had a spot on his pancreas and would need a procedure in [place]. He did did not have this done as he could not afford it and could not obtain a ride there. Review of [facility] records shows an MRI from 10/16/23 There has been interval progression of atrophy of the pancreatic body and tail, within residual parenchyma in this area. The pancreatic duct in these regions demonstrates a dilated appearance measuring up to 0.8 cm. There is short segment of focal narrowing of the duct in the pancreatic body measuring 1.1 cm in length, series 7, image 66, no appreciable corresponding obstructing lesion. There are several small dilated side branches, series 7, image 69 through 80 The pancreatic parenchyma in the head and neck is unremarkable. The pancreatic duct in the head and neck is not dilated nor visualize. Pain started a few days ago after eating baked chicken mashed potatoes and a wheat bun. He felt constipated and took a laxative however he did not have any bowel movements. He is passing gas. He vomited a few times before coming to the hospital but has not since being here. He does not drink alcohol on a regular basis. Last alcoholic drink was 4 to 5 years ago. Patient denies any pertinent medical history. He has never had any surgeries. He denies unintentional weight loss, night sweats, fever or family history of pancreatic cancer. Patient's mother had diabetes and his father had brain cancer. [facility] Medical History Hypertension Home Medications ?Medication ?Instructions ?Recorded ?Last Taken ?Type amlodipine 10 mg tablet 10 mg PO DAILY 05/20/25 Unknown History Allergy/AdvReac Type Severity Reaction Status Date / Time Penicillins (PCN) Allergy Intermediate PT UNSURE Verified 05/20/25 13:38 OF REACTION Social History Smoking Status: Never smoker Lab / Micro Data 05/21/25 06:56 05/21/25 06:56 Assessment & Plan Assessment/Plan (1) Acute upper abdominal pain: (2) Acute on chronic pancreatitis: (3) Constipation: QUALIFIERS: Constipation type: unspecified constipation type Qualified Code(s): K59.00 - Constipation, unspecified (4) Hepatic hemangioma: (5) Pancreatic mass:
[2025-05-21] MEDS: Nicotine (PBKC) 21 MG Patch TD (17:56)
[2025-05-21] MEDS: 0.9% Saline Lock 10 ML Syringe IV (19:51)
[2025-05-21 21:14] VITALS: BP 115/59; PULSE 81; RESP 17; TEMP 36.8; O2SAT 94
[2025-05-21] MEDS: Cefepime HCl 2 GM in 0.9% Normal Saline (100mL MB+) 100 ML IV (21:20)
[2025-05-22] VITALS (16 sets, daily range): BP systolic 105–138; BP diastolic 61–91; PULSE 71–90; RESP 12–18; TEMP 36.6–37.1; O2SAT 88–96; BMI 38.0
[2025-05-22] MEDS: 0.9% Normal Saline (1000mL) 1,000 ML 125 ML IV ×2 (00:50→16:05)
[2025-05-22 04:07] LABS: Carcinoembryonic Antigen 0.9 ng/mL (0.0-4.7)
[2025-05-22 05:23] LABS: Hematocrit 37.6 % (40-54); Hemoglobin 13.3 g/dL (13.0-16.5); Immature Granulocytes Count 0.030 X10^3/uL (0.0-0.0); Mean Corp Hgb Conc 35.4 g/dL (32-36); Mean Corpuscular Volume 83.7 fL (80-94); Mean Platelet Vol. 9.2 fl (6.2-12.0); NRBC Flagged by Analyzer 0 % (0-5); Platelet Count 312 K/mm3 (150-450); RBC Distribution Width CV 12.2 % (11.6-14.6); RBC Distribution Width SD 37.1 fl (35.1-43.9); Red Blood Count 4.49 M/mm3 (4.6-6.2); White Blood Count 7.8 K/mm3 (4.4-11.0)
[2025-05-22 05:46] LABS: AST(SGOT) 10 U/L (<=37); Alanine Aminotransfer ALT/SGPT 10 U/L (<=46); Albumin, Serum 3.6 g/dL (3.5-5.0); Alkaline Phosphatase 64 U/L (40-129); Anion Gap 13 (5-15); BUN 12 mg/dL (4-19); BUN/Creat Ratio 16.0 RATIO (10-20); Calcium,Total 8.7 mg/dL (7.6-11.0); Carbon Dioxide 22.6 mmol/L (21.0-32.0); Chloride 102 mmol/L (98-108); Estimated Creatinine Clearance 107.22 ml/min (50-250); Globulin 3.0 g/dL (2.2-4.2); Glucose 93 mg/dL (70-99); Potassium 3.9 mmol/L (3.3-5.1)
--- NOTE | 2025-05-22 06:00 | EKG12_ITS ---
Test Reason : AM EKG Blood Pressure : */* mmHG Vent. Rate : 76 BPM Atrial Rate : 76 BPM P-R Int : 146 ms QRS Dur : 86 ms QT Int : 362 ms P-R-T Axes : 43 43 16 degrees QTcB Int : 407 ms Normal sinus rhythm Normal ECG When compared with ECG of 02-Mar-2010 08:42, No significant change was found Confirmed by GUILLERMO ERNST, MEGHAN ([id number]), editor index ROLAND JONES ([id number]) on 05/22/2025 10:09:50 AM Referred By: JEAN MARIE Confirmed By: MEGHAN LI MD
[2025-05-22] MEDS: Cefepime HCl 2 GM in 0.9% Normal Saline (100mL MB+) 100 ML IV (09:48)
--- NOTE | 2025-05-22 10:43 | PN.HOSP_ITS ---
Subjective Subjective Doing well today, no issues overnight Objective Data Objective Data Vital Signs: Vital Signs Temp Pulse Resp BP Pulse Ox O2 Del Method 98.4 F 72 18 105/61 89 Room Air 05/22/25 07:53 05/22/25 07:53 05/22/25 07:53 05/22/25 07:53 05/22/25 07:53 05/22/25 09:00 Oxygen Delivery Method Room Air Weight: 201 lb 4.513 oz Body Mass Index (BMI) 38.0 Intake & Output: Intake and Output for Last 24 Hours 05/21/25 05/22/25 05/23/25 03:59 03:59 03:59 Intake Total 1456.25 / 1456.25 3002.08 / 3002.08 100 / 100 Output Total 200 / 200 150 / 150 Balance 1256.25 / 1256.25 2852.08 / 2852.08 100 / 100 Lab / Micro Data 05/22/25 05:02 05/22/25 05:02 Labs: Laboratory Results - last 24 hr 05/21/25 06:56: Carcinoembryonic Ag 0.9, CA 19-9 Antigen 13 05/21/25 06:56: CA 19-9 Antigen Cancelled, CA 19-9 Serial Monitor Cancelled 05/22/25 05:02: WBC 7.8, RBC 4.49 L, Hgb 13.3, Hct 37.6 L, MCV 83.7, MCH 29.6, MCHC 35.4, RDW Std Deviation 37.1, RDW Coeff of [place] 12.2, Plt Count 312, MPV 9.2, Immature Gran % (Auto) 0.400, Neut % (Auto) 66.4, Lymph % (Auto) 22.0, [place] % (Auto) 7.6, Eos % (Auto) 3.2, Baso % (Auto) 0.4, Absolute Neuts (auto) 5.2, Absolute Lymphs (auto) 1.71, Nucleated RBC % 0, Sodium 138, Potassium 3.9, Chloride 102, Carbon Dioxide 22.6, Anion Gap 13, BUN 12, Creatinine 0.73, Estim Creat Clear Calc 107.22, Est GFR (MDRD) Non-Af 106, BUN/Creatinine Ratio 16.0, Glucose 93, Calcium 8.7, Total Bilirubin 0.58, AST 10, ALT 10, Alkaline Phosphatase 64, Total Protein 6.5, Albumin 3.6, Globulin 3.0, Albumin/Globulin Ratio 1.2 Physical Exam Narrative General: Alert, Oriented x3, Cooperative, No apparent distress HEENT: Atraumatic, PERRLA, EOMI, Normocephalic Oral: Moist Mucosa Neck: Supple, No JVD Lungs: Diminished, Normal air movement, No rhonchi, No wheeze, No rales Cardiovascular: Regular rate, Regular Rhythm, Normal S1, Normal S2, No murmurs Abdomen: Soft, mild epigastric tenderness, Non-Distended, No Hepato-splenomegaly Extremities: No edema, Capillary Refill Less than 3 Seconds Skin: No rashes, No breakdown Musculoskeletal: No Tenderness to Palpation of Joints or Extremities Neurological: No focal neurological deficits, moves all extremities Psych/Mental Status: Normal Affect, Appropriate Assessment & Plan Assessment/Plan (1) Acute pancreatitis: (2) Hepatic lesion: PLAN: Plan 1. Acute pancreatitis ?Pancreatitis due to likely pancreatic head mass, CT scan demonstrated dilated ducts and recommended an MRI, the MRI indicated solid mass of the head of the pancreas about 3.7 cm with a complex cystic lesion in the body/head and junction of the pancreas that was 3.1 cm it is either an extension or a second mass it does appear based on the MRI that he has vascular encasement that is carolyn limit surgical intervention ? ERCP planned for today appreciate gastroenterology's assistance ?3 separate enhancing liver lesions as well consistent with hemangiomas ? CA 19-9 is 13 and CEA is 0.9 ? Continue with IV fluids and n.p.o. with pain medications ?Will discontinue cefepime 2. Essential HTN ? Continue with his home amlodipine ? Monitor make adjustments as necessary DVT: Lovenox Charges/Coding Visit Charges Inpatient E&M: 45561 Subs Hosp L2
--- NOTE | 2025-05-22 13:07 | PCM.PRE.AN2 ---
ASA Classification* ASA Classification ASA Classification: 2 and E Assessment & Plan Anesthesia* Anesthesia Assessment Anesthesia Assessment: Discussed sedation and/or anesthesia options, risks, benefits, and alternatives with patient/parents/legal guardian/POA. Questions invited. The patient/parents/legal guardian/POA seems to understand and agrees to proceed with anesthesia plan. Reviewed the physical assessment, medical history, allergy history and patient home medications list prior to surgery/procedure/anesthetic and documented any changes. Performed airway and anesthesia risk assessments. Anesthesia Type Anesthesia Type: General and MAC History Source History Obtained from:: Patient and Chart Anesthesia Focused Assessment* Temperature: 98.7 F Pulse Rate: 81 Blood Pressure: 119/74 Respiratory Rate: 18 Pulse Ox: 95 Oxygen Delivery Method: Room Air Airway Assessment Mouth opens: >3 cm Mallampati Score: II Teeth Condition: Chipped/Broken Neck Range of motion (ROM): Full ROM Labs Anesthesia Preop lab: CBC WBC, (4.4-11.0) 7.8 K/mm3 Today, 05:02 RBC, (4.6-6.2) 4.49 M/mm3 L Today, 05:02 Hgb, (13.0-16.5) 13.3 g/dL Today, 05:02 Hct, (40-54) 37.6 % L Today, 05:02 Plt Count, (150-450) 312 K/mm3 Today, 05:02 CHEMISTRY Potassium, (3.3-5.1) 3.9 mmol/L Today, 05:02 Sodium, (133-145) 138 mmol/L Today, 05:02 BUN, (4-19) 12 mg/dL Today, 05:02 Creatinine, (0.70-1.20) 0.73 mg/dL Today, 05:02 Glucose, (70-99) 93 mg/dL Today, 05:02 COAG Pre-Assessment Diagnosis/Proposed Procedure Planned Operative Procedure(s): ERCP Anesthesia History 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 When Was Last Pacemaker Check QUESTION #4 FULL TEXT: You/Your Family Experience fever (hyperthermia) with Anesthesia Last Oral Intake Last Oral intake: Last Oral Intake NPO since 00:00 05/22/25 12:11 Meds taken in AM with sips of Yes 05/22/25 12:11 water? Meds patient instructed to amlodipine 05/22/25 12:11 take am of surgery PONV PONV - lasting floorworker: PONV - lasting floorworker Female HX of Motion Sickness HX of N/V After Surgery Non-Smoker Duration of Surgery greater than 60 minutes Number of Risk Factors PONV Score Height & Weight Height & Weight: Anesthesia: Height & Weight Height 5 ft 1 in 05/22/25 12:11 Weight: 91.3 kg 05/22/25 12:11 Body Mass Index (BMI) 38.0 05/22/25 12:11 Respiratory Assessment Respiratory Assessment - lasting floorworker: Respiratory Tract Infection Hx - lasting floorworker Hx Respiratory Tract Infection No 05/21/25 21:12 STOP Sleep Apnea STOP Sleep Apnea - lasting floorworker: STOP Sleep Apnea - lasting floorworker Hx Hypertension Yes 05/21/25 10:01 Hx Sleep Apnea No 05/20/25 21:07 CPAP BIPAP Do you snore loudly (louder No 05/20/25 21:07 than talking or can be heard Do you often feel tired/ Yes 05/20/25 21:07 fatigued/ sleepy during daytime? Has anyone observed you stop No 05/20/25 21:07 breathing during sleep? STOP Results Positive 05/20/25 21:07 QUESTION #5 FULL TEXT : Do you snore loudly (louder than talking or can be heard through closed doors)? 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 Specify any problems Hx of Preganancy in last 3 N/A 05/20/25 21:07 Months Nurse Filling Out Transfusion EVIZZO 05/20/25 21:07 & Questions: Date: 05/20/25 05/20/25 21:07 Time: 21:21 05/20/25 21:07 Patient unable to answer at this time (ie. confused, unrespo /Reproduction History /Reproductive History - lasting floorworker: /Reproductive Hx- lasting floorworker Hx Now No 05/21/25 21:12 Gestational Age (in weeks): EDC: Hx Hx Para Hx Section SAB No 05/21/25 21:12 Active Medications Active Medications: Current Medications Generic Name Dose Route Start Last Admin Trade Name Freq PRN Reason Stop Dose Admin Acetaminophen 650 mg 05/20/25 21:30 05/21/25 09:26 Acetaminophen 325 Mg Tablet PO 650 mg Q6H PRN PRN Administration Pain 1-10 Or Fever >100.7 Amlodipine Besylate 10 mg 05/21/25 10:00 05/22/25 08:24 Amlodipine 10 Mg Tablet PO 10 mg DAILY CARMENCITA Administration Protocol Enoxaparin Sodium 40 mg 05/21/25 10:00 05/22/25 08:05 Enoxaparin 40 Mg/0.4 Ml Syringe SC Not Given DAILY CARMENCITA Hydralazine HCl 10 mg 05/20/25 21:30 Hydralazine 20 Mg/Ml Vial IV Q6H PRN PRN BP >160/110 Protocol Sodium Chloride 1,000 mls @ 125 mls/hr 05/20/25 14:10 05/22/25 12:10 IV Infused .Q8H CARMENCITA Infusion Sodium Chloride 250 mls @ 15 mls/hr 05/20/25 21:08 IV .[id number] PRN Saline Flush Sodium Chloride 250 mls @ 15 mls/hr 05/20/25 21:08 IV .[id number] PRN Additional IVPB Infusion Lactated Ringer's 1,000 mls @ 15 mls/hr 05/22/25 13:00 IV .Q48H CARMENCITA Morphine Sulfate 2 - 4 mg 05/20/25 21:30 Morphine 2 Mg/Ml Syringe IV Q3H PRN PRN Pain Score 6-10 Morphine Sulfate 2 - 4 mg 05/20/25 21:33 Morphine 4 Mg/Ml Syringe IV Q3H PRN PRN Pain Score 6-10 Nicotine 21 mg 05/21/25 17:20 05/21/25 17:56 Nicotine (Pbkc) 21 Mg Patch TD 21 mg DAILY CARMENCITA Administration Nutritional Formula (Lactose Free) 120 ml 05/20/25 22:00 05/22/25 12:59 Ensure Plus High Protein 120 Ml Liquid PO Not Given 4X/DAY CARMENCITA Ondansetron HCl 4 mg 05/20/25 21:30 Ondansetron 4 Mg/2 Ml Vial IV Q8H PRN PRN NAUSEA/VOMITING Oxycodone HCl 5 mg 05/20/25 21:30 05/21/25 21:18 Oxycodone 5 Mg Tablet PO 5 mg Q4H PRN PRN Administration Pain Score 4-10 Sodium Chloride 10 - 40 ml 05/20/25 21:08 05/21/25 19:51 0.9% Saline Lock 10 Ml Syringe IV 10 ml UD PRN Administration SALINE FLUSH PFSH Medical History Hypertension Home Medications ?Medication ?Instructions ?Recorded ?Last Taken ?Type amlodipine 10 mg tablet 10 mg PO DAILY 05/20/25 Unknown History Allergy/AdvReac Type Severity Reaction Status Date / Time Penicillins (PCN) Allergy Intermediate PT UNSURE Verified 05/20/25 13:38 OF REACTION Social History Smoking Status: Never smoker Review of Systems (Anesthesia) ROS Narrative System reviewed and no additional complaints, except as documented.
--- NOTE | 2025-05-22 13:30 | FLU_PTH ---
PATIENT: KRISH GAONA LOC: [facility] U#:[id number] AGE/SX: 59/M ROOM: [facility]312 RE05/20/[address]: Dr. Tolu Chambers MD : 1965 BED: 1 DIS: 05/23/2025 SPEC #: [id number] RECD: 05/22/25 15:11 STATUS: RENETTA REQ #: [id number] ADAN: 05/22/25 13:[address]: Andrew Nevarez DEPT: CYTOLOGY RECD BY: Lauren Pinto ENTERED: 05/23/25 07:21 SP TYPE: Fluid OTHR DR: MD Dr. Tolu Danielle MD Dr. Rahsaan Friend, DO Dr. Rohini Kalisetti, MD Tissues: Bile duct, NOS Procedures: Special Stain Group II Surgery Specimen Level IV Cytospin Fluid Cytology Other Comments: @ Ordering doctor for SSII edited from to @ by MALCOLM at 05/23/25 0911 @ Ordering doctor for SUIV edited from to @ by MALCOLM at 05/23/25 0911 @ Ordering doctor for CYSPIN edited from to @ by MALCOLM at 05/23/25 0911 @ Ordering doctor for CYOTHER edited from to @ by MALCOLM at 05/23/25 0911 @ Submitting doctor edited from to @ by MALCOLM at 05/23/25 0911 HEADER OPERATION: ERCP with Sphincterotomy, brushings PRE-OP DIAGNOSIS: Acute upper abdominal pain, acute on chronic pancreatitis, constipation, hepatic hemangioma, pancreatic mass TISSUE SUBMITTED: A- Biliary stricture brush tip and brushings DIAGNOSIS CYTOLOGY A. Biliary stricture, ERCP (cytospin, cellblock, smear x3): * Atypical cells present. CYTOLOGY STUDY Slides are reviewed. CYTOLOGY GROSS A. Received is 1 brush with 0.2 ml of yellow-cloudy fluid and 3 smears labeled with the patient's name and and designated per the requisition as Biliary stricture brush tip and brushings. Submitted for cytology and cell block preparation. 05/23/2025 CPT: 18421 ,39792
--- NOTE | 2025-05-22 14:25 | RAD_ITS ---
PROCEDURE: ERCP BILIARY/PANCREAS; O.R. FLUORO FOR C-ARM 05/22/2025 REASON FOR EXAM: ERCP TECHNIQUE: Procedure Code: RADERCP; RADORFL_C_ARM Modality: DX Procedure: ERCP BILIARY/PANCREAS; O.R. FLUORO FOR C-ARM. Fluoroscopy time: 3.1 seconds. Dose: 1.26 mGy. COMPARISON: None. RAD/ERCP Biliary/Pancreas IMPRESSION: Intraoperative fluoroscopy was performed for ERCP. 2 spot images were also obt ained. Reading Location: [id number]
--- NOTE | 2025-05-22 14:25 | RAD_ITS ---
PROCEDURE: ERCP BILIARY/PANCREAS; O.R. FLUORO FOR C-ARM 05/22/2025 REASON FOR EXAM: ERCP TECHNIQUE: Procedure Code: RADERCP; RADORFL_C_ARM Modality: DX Procedure: ERCP BILIARY/PANCREAS; O.R. FLUORO FOR C-ARM. Fluoroscopy time: 3.1 seconds. Dose: 1.26 mGy. COMPARISON: None. RAD/O.R. Fluoro for C-Arm IMPRESSION: Intraoperative fluoroscopy was performed for ERCP. 2 spot images were also obt ained. Reading Location: [id number]
--- NOTE | 2025-05-22 15:00 | OP.ERCP_ITS ---
Patient Name: Froy Rosas Procedure Date: 05/22/2025 2:04 PM Date of : 1965 Age: 59 Procedure: ERCP Indications: Acute pancreatitis, Malignant tumor of the head of pancreas Providers: Andrew Nevarez DO Medicines: Monitored Anesthesia Care Patient Profile: This is a 59 year old male. Refer to note in patient chart for documentation of history and physical. Patient has symptoms of acute right upper quadrant abdominal pain and acute epigastric abdominal pain. This patient has no history of previous ERCP. This patient has no history of surgical alteration of the upper digestive tract anatomy. Complications: No immediate complications. Procedure: Pre-Anesthesia Assessment: - Prior to the procedure, a History and Physical was performed, and patient medications and allergies were reviewed. The risks and benefits of the procedure and the sedation options and risks were discussed with the patient. All questions were answered and informed consent was obtained. Patient identification and proposed procedure were verified by the physician in the pre-procedure area. Mental Status Examination: alert and oriented. Airway Examination: normal oropharyngeal airway and neck mobility. Respiratory Examination: clear to auscultation. CV Examination: normal. ASA Grade Assessment: II - A patient with mild systemic disease. After reviewing the risks and benefits, the patient was deemed in satisfactory condition to undergo the procedure. The anesthesia plan was to use general anesthesia. Immediately prior to administration of medications, the patient was re-assessed for adequacy to receive sedatives. The heart rate, respiratory rate, oxygen saturations, blood pressure, adequacy of pulmonary ventilation, and response to care were monitored throughout the procedure. The physical status of the patient was re-assessed after the procedure. After obtaining informed consent, the scope was passed under direct vision. Throughout the procedure, the patient's blood pressure, pulse, and oxygen saturations were monitored continuously. The Duodenoscope was introduced through the mouth, and advanced to the duodenum and used to inject contrast into the bile duct. The ERCP was accomplished without difficulty. The patient tolerated the procedure well. Scope In: 2:32:36 PM Scope Out: 2:44:27 PM Total Procedure Duration Time 0 hours 11 minutes 51 seconds Findings: The knitting machine fixer head film was normal. The esophagus was successfully intubated under direct vision. The scope was advanced to a normal major papilla in the descending duodenum without detailed examination of the pharynx, larynx and associated structures, and upper GI tract. The upper GI tract was grossly normal. The bile duct was deeply cannulated with the short-nosed traction sphincterotome. Contrast was injected. I personally interpreted the bile duct images. There was brisk flow of contrast through the ducts. Image quality was adequate. Contrast extended to the entire biliary tree. Opacification of the entire opacified area, main bile duct, common bile duct, left and right hepatic ducts and all intrahepatic branches and entire biliary tree was successful. The maximum diameter of the ducts was 7 mm. The lower third of the main bile duct contained a single localized stenosis 5 mm in length. Placement of a long 0.025 inch Jagwire into the biliary tree was attempted. This passed successfully. A 5 mm biliary sphincterotomy was made with a traction (standard) sphincterotome using ERBE electrocautery. There was no post-sphincterotomy bleeding. Cells for cytology were obtained by brushing in the lower third of the main bile duct. Impression: - A single localized biliary stricture was found in the lower third of the main bile duct. The stricture was indeterminate. - A biliary sphincterotomy was performed. - Cells for cytology obtained in the lower third of the main duct. Procedure Code(s): --- Professional --- 16547, Endoscopic retrograde cholangiopancreatography (ERCP); with sphincterotomy/papillotomy 47958, 26, Endoscopic catheterization of the biliary ductal system, radiological supervision and interpretation CPT copyright 2021 [employer]. All rights reserved. The codes documented in this report are preliminary and upon hospice plan administrator review may be revised to meet current compliance requirements. Andrew Nevarez DO 05/22/2025 2:59:49 PM This report has been signed electronically. Number of Addenda: 0 Note Initiated On: 05/22/2025 2:04 PM
--- NOTE | 2025-05-22 15:00 | OP.PROVAT_ITS ---
05/22/2025 Deborah Alves Md Re : ERCP procedure for Froy Rosas Dear Joselyn This procedure was performed on May. My impressions and recommendations are as follows: Impressions : - A single localized biliary stricture was found in the lower third of the main bile duct. The stricture was indeterminate. - A biliary sphincterotomy was performed. - Cells for cytology obtained in the lower third of the main duct. Recommendations : My findings are described in the full procedure note, which is enclosed. If I can be of further assistance, please feel free to contact me at . Sincerely, Andrew Nevarez, 05/22/2025 2:59:49 PM This report has been signed electronically.
--- NOTE | 2025-05-22 15:16 | PCM.POST.ANE ---
Anesthesia: Postop Eval I Current Vital Signs Temperature: 98.4 F Pulse Rate: 84 Blood Pressure: 134/91 Respiratory Rate: 16 Pulse Ox: 95 Oxygen Delivery Method: Nasal Cannula Oxygen Flow Rate (L/min): 2 Assessment Airway patent: Yes Spontaneous unlabored respirations: Yes Mental status: Awake and Calm nausea: No Vomiting: No Anesthesia Complication: No Fluid Hydration Crystalloid volume administer (ml): 800 Total IV fluid infused: 800 Progress Note Anesthesia document: Postop Eval 1 completed: Yes
--- NOTE | 2025-05-22 16:29 | PCM.POSTANE2 ---
Anesthesia Postop Eval I Sum Postop Eval Completion status Anesthesia document: Postop Eval 1 completed: Yes Anesthesia Postop Eval I Summary Anesthesia Postop Eval I Summary: Anesthesia Postop Eval I: Assessment Summary Airway patent Yes 05/22/25 15:17 [email or web address] Spontaneous unlabored Yes 05/22/25 15:17 [email or web address] respirations Mental status Awake,Calm 05/22/25 15:17 [email or web address] nausea No 05/22/25 15:17 [email or web address] Vomiting No 05/22/25 15:17 [email or web address] Anesthesia Postop Eval I: Fluid Summary Crystalloid volume administer 800 05/22/25 15:17 [email or web address] (ml) Colloids volume administered ( ml) Blood Product volume administered (ml) Total IV fluid infused 800 05/22/25 15:17 [email or web address] Anesthesia Postop Eval I: Summary Notes Anesthesia Complication No 05/22/25 15:17 [email or web address] Anesthesia Complication Comment: Post-operative progress note Anesthesia: Postop Eval II Evaluation Mental status: Awake and Calm Pain Level: 1 nausea: No Vomiting: No Complications Anesthesia Complication: No
[2025-05-22] MEDS: Ensure Plus High Protein 120 ML LIQUID PO (19:43)
[2025-05-23 00:08] VITALS: BP 128/67; PULSE 66; RESP 16; TEMP 36.7; O2SAT 94
[2025-05-23] MEDS: 0.9% Normal Saline (1000mL) 1,000 ML 125 ML IV (01:01)
[2025-05-23 04:08] VITALS: BP 108/76; PULSE 64; RESP 16; TEMP 36.8; O2SAT 97
[2025-05-23 04:36] LABS: Hematocrit 38.1 % (40-54); Hemoglobin 13.7 g/dL (13.0-16.5); Immature Granulocytes Count 0.040 X10^3/uL (0.0-0.0); Mean Corp Hgb Conc 36.0 g/dL (32-36); Mean Corpuscular Volume 82.3 fL (80-94); Mean Platelet Vol. 9.0 fl (6.2-12.0); NRBC Flagged by Analyzer 0 % (0-5); Platelet Count 336 K/mm3 (150-450); RBC Distribution Width CV 11.9 % (11.6-14.6); RBC Distribution Width SD 35.7 fl (35.1-43.9); Red Blood Count 4.63 M/mm3 (4.6-6.2); White Blood Count 6.5 K/mm3 (4.4-11.0)
[2025-05-23 05:03] LABS: AST(SGOT) 62 U/L (<=37); Alanine Aminotransfer ALT/SGPT 63 U/L (<=46); Albumin, Serum 3.6 g/dL (3.5-5.0); Alkaline Phosphatase 209 U/L (40-129); Anion Gap 11 (5-15); BUN 14 mg/dL (4-19); BUN/Creat Ratio 20.9 RATIO (10-20); Calcium,Total 8.9 mg/dL (7.6-11.0); Carbon Dioxide 21.8 mmol/L (21.0-32.0); Chloride 103 mmol/L (98-108); Estimated Creatinine Clearance 113.44 ml/min (50-250); Globulin 2.9 g/dL (2.2-4.2); Glucose 214 mg/dL (70-99); Potassium 4.1 mmol/L (3.3-5.1)
[2025-05-23 08:08] VITALS: BP 124/70; PULSE 72; RESP 16; TEMP 36.3; O2SAT 98
[2025-05-23] MEDS: Ensure Plus High Protein 120 ML LIQUID PO (08:20)
--- NOTE | 2025-05-23 09:18 | DCINST_ITS ---
Discharge Instructions DC O2, CPAP, BIPAP needs Home O2 Discharge instructions: No Dressing / Incision Discharge Activity: Return to Normal Activity Dressing / Incision Call your doctor if you observe: Fever of 101 or Higher, Shortness of breath, Dizziness, Fainting spells, Swelling in the ankles, Chest pain and Increased palpitations (irregular heartbeat) Follow Up Care Test Results: Test results from this visit will be discussed in further detail at your follow- up appointment, if applicable. Discharge Plan Admission Admit Date/Time: 05/20/25 19:18 Attending Provider: Tolu Chambers Primary Care Provider: Deborah Alves Consulting Providers: Carla Coello; Andrew Nevarez Instructions Patient Instructions: Understanding Pancreatitis, Pancreatitis Acute Dc, Pancreatitis Chronic Dc Discharge Orders/Prescriptions Prescriptions: Continued amlodipine 10 mg tablet 10 mg PO DAILY Referrals / Follow Up: Andrew Nevarez DO [Med Staff - Active Staff, Gastroenterology] - Within 2 Weeks Deborah Alves MD [Primary Care Provider, Internal Medicine] - Within 1 Week Disposition Disposition (needs filled in before D/C Order can be placed): Home, Self Care
--- NOTE | 2025-05-23 10:40 | PHA.DC.MR.R ---
Pharmacy [place] Med Reconciliation Pharmacy Service has performed discharge medication reconciliation for this patient. The patient's discharge medication list was reviewed for discrepancies and discrepancies were resolved. Medications at Discharge Home Medications amlodipine 10 mg tablet 10 mg PO DAILY 05/20/25
--- NOTE | 2025-05-23 12:00 | PCM.DC.SUM ---
Providers Date of Admission: 05/20/25 Primary Care Physician: Dr. Deborah Alves MD Consultations 05/21/25 10:59 Consult: Gastroenterology Routine Consulting Provider: Ra Gerihsaan Reason for Consult: Pancreatic head mass EMERGENT Consult: No MD Notified: Yes Date Notified: 05/21/25 Time Notified: 13:30 Method of Notification: Text Reason For Visit: ACUTE PANCREATITIS Diagnosis Discharge Diagnosis (1) Acute pancreatitis: Status: Acute Code(s): K85.90 - Acute pancreatitis without necrosis or infection, unspecified (2) Hepatic lesion: Status: Acute Code(s): K76.9 - Liver disease, unspecified Medications at Discharge Home Medications amlodipine 10 mg tablet 10 mg PO DAILY 05/20/25 Hospital Course Operations ERCP Procedures None Summary of Care Provided Minutes Spent on Discharge: 37 Hospital Course: Per HPI: KRISH GAONA, is a 59 M with a PMH as outlined who presents via the ED on with a complaitn of abdominal pain for several days. It is mainly epigatric and in the right upper quadrant also. Pain was [id number] by eating. HE had had pancreatitis in the past and it was attributed to alcohol then. He however has not had a drink in several years. He denied any nausea, fever or chills. Pain did not radiate tot he back or shoulder but radiated to the right upper quadrant. Review of systems was otherwise negative. Vitals in the ED were BP of 138/87, OH of 95, RR of 20 and temp of 99.2F. he was saturating at 100% on room air. CBC showed Hb of 16, wbc of 13.2 and platelets of 330. Chemistry showed sodium of 137, potassium of 3.6 andbicarb of 26.4. Cr was 0.86. Lipase was 266; liver profile was normal. Urinalysis showed no evidence of UTI. Gallbladder ultrasound showed a medial hepatic left lobe hypoechoic lesion measuring 2.5 x 2.2 x 1.7 cm likely indicating a true solid hepatic lesion rather than list and an additional 1.4 x 1.4 x 1 cm simple cyst in the left hepatic lobe. There was trace pericholecystic fluid with normal gallbladder and negative Land sign and no sonographic evidence of acute cholecystitis and common bile duct was within normal limits at 4.[address] abdomen and pelvis with contrast showed an ill-defined pancreatic head enlargement with multilobulated hypodense lesion and surrounding inflammation with primary consideration including acute pancreatitis with developing pseudocyst or necrosis and given ductal dilation and parenchymal atrophy and underlying pancreatic head neoplasm must be considered an indeterminate enhancing lesion in the liver with central hypodensity and surrounding hyperemia consider hepatic abscess versus hyper vascular metastasis and peripheral wedge-shaped hyperenhancing hepatic foci likely perfusional related though infectious or metastatic foci are not entirely excluded. He has been admitted to be managed for acute pancreatitis of unclear etiology. Hospital Course: 1. Acute pancreatitis?59-year-old male presented to the hospital with epigastric abdominal pain, he has had episodes of pancreatitis in the past attributed to alcohol though he says he has not been drinking for the last several years. 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 Tumor markers were obtained and these so far are negative, he did have an ERCP and with a sphincterotomy but no stent was necessary. There is a possibility that this could just be complications of chronic pancreatitis and his abdominal pain has improved. He was able to tolerate a regular diet without any significant increase or worsening of his discomfort at baseline. I discussed with him the possibility for discharge and he expressed understanding of the risks and benefits of going home and would like to go home today. I recommend follow-up with gastroenterology as an outpatient for biopsy results as well as further management of his chronic pancreatitis. He had been started on cefepime however given the lack of fever and signs of infection this was discontinued fairly early on into his course. Of note he also had hemangiomas noted in his liver as an incidental finding. Physical Exam Narrative General: Alert, Oriented x3, Cooperative, No apparent distress HEENT: Atraumatic, PERRLA, EOMI, Normocephalic Oral: Moist Mucosa Neck: Supple, No JVD Lungs: Diminished, Normal air movement, No rhonchi, No wheeze, No rales Cardiovascular: Regular rate, Regular Rhythm, Normal S1, Normal S2, No murmurs Abdomen: Soft, mild epigastric tenderness, Non-Distended, No Hepato-splenomegaly Extremities: No edema, Capillary Refill Less than 3 Seconds Skin: No rashes, No breakdown Musculoskeletal: No Tenderness to Palpation of Joints or Extremities Neurological: No focal neurological deficits, moves all extremities Psych/Mental Status: Normal Affect, Appropriate Weight / BMI Weight Weight: 201 lb 4.513 oz Body Mass Index (BMI) 38.0 ABG / Lab / Microbiology Data 05/23/25 04:20 05/23/25 04:20 Laboratory: Laboratory Results - last 24 hr 05/23/25 04:20: WBC 6.5, RBC 4.63, Hgb 13.7, Hct 38.1 L, MCV 82.3, MCH 29.6, MCHC 36.0, RDW Std Deviation 35.7, RDW Coeff of Malia 11.9, Plt Count 336, MPV 9.0, Immature Gran % (Auto) 0.600, Neut % (Auto) 79.2 H, Lymph % (Auto) 15.7 L, Calhoun % (Auto) 4.3, Eos % (Auto) 0.0, Baso % (Auto) 0.2, Absolute Neuts (auto) 5.1, Absolute Lymphs (auto) 1.02, Nucleated RBC % 0, Sodium 137, Potassium 4.1, Chloride 103, Carbon Dioxide 21.8, Anion Gap 11, BUN 14, Creatinine 0.69 L, Estim Creat Clear Calc 113.44, Est GFR (MDRD) Non-Af 108, BUN/Creatinine Ratio 20.9 H, Glucose 214 H, Calcium 8.9, Total Bilirubin 0.40, AST 62 H, ALT 63 H, Alkaline Phosphatase 209 H, Total Protein 6.5, Albumin 3.6, Globulin 2.9, Albumin/Globulin Ratio 1.3 Radiography Diagnostic Testing: Radiology Impression C-Arm Fluoroscopy 05/22/25 14:25 IMPRESSION: Intraoperative fluoroscopy was performed for ERCP. 2 spot images were also obtained. Reading Location: [address] Endo Retro Cholangiopancreatogram 05/22/25 14:25 IMPRESSION: Intraoperative fluoroscopy was performed for ERCP. 2 spot images were also obtained. Reading Location: [address] D/C Instructions Call your doctor if you observe: Fever of 101 or Higher, Shortness of breath, Dizziness, Fainting spells, Swelling in the ankles, Chest pain and Increased palpitations (irregular heartbeat) DC O2, CPAP, BIPAP Needs Home O2 Discharge instructions: No Meaningful Use Info Meaningful Use Meaningful Use Diagnoses (Choose all that apply): None applicable Discharge Plan Admission Admit Date/Time: 05/20/25 19:18 Attending Provider: Tolu Chambers Primary Care Provider: Deborah Alves Consulting Providers: Carla Coello; Andrew Nevarez Instructions Patient Instructions: Understanding Pancreatitis, Pancreatitis Acute Dc, Pancreatitis Chronic Dc Discharge Orders/Prescriptions Prescriptions: Continued amlodipine 10 mg tablet 10 mg PO DAILY Referrals / Follow Up: Andrew Nevarez DO [Med Staff - Active Staff, Gastroenterology] - Within 2 Weeks Deborah Alves MD [Primary Care Provider, Internal Medicine] - Within 1 Week Disposition Disposition (needs filled in before D/C Order can be placed): Home, Self Care Charges/Coding Visit Charges Inpatient E&M: 17482 Disch Hosp >30min
[2025-05-23 13:24] VITALS: BP 135/74; PULSE 76; RESP 18; TEMP 36.4; O2SAT 98
[2025-05-23 16:09] LABS: IgG, Quant 739 mg/dL (603-1613); Immunoglobulin G, Subclass 1 309 mg/dL (248-810); Immunoglobulin G, Subclass 2 315 mg/dL (130-555); Immunoglobulin G, Subclass 3 13 mg/dL (15-102); Immunoglobulin G, Subclass 4 5 mg/dL (2-96)
== END 2025-05-23 13:33 | disposition home or self-care (01) | DRG 438 ==
LOC: ED 19:30 → MS3 20:33
PROVIDERS: Internal Medicine Gastroenterology; Nurse Practitioner Acute Care; Admitting Provider Student in an Organized Health Care Education/Training Program; Emergency Provider Emergency Medicine; PCP Student in an Organized Health Care Education/Training Program; Visit Provider Family Medicine
PROC: 0FJB8ZZ Inspection of Hepatobiliary Duct, Via Natural or Artificial Opening Endoscopic (ICD-10-PCS; CPT 43260; principal; 2025-05-22 13:10)
DX: K85.90 Acute pancreatitis without necrosis or infection, unspecified (principal); K83.1 Obstruction of bile duct; I10 Essential (primary) hypertension; K76.9 Liver disease, unspecified; K86.1 Other chronic pancreatitis; D18.03 Hemangioma of intra-abdominal structures; Z79.899 Other long term (current) drug therapy
CPT/HCPCS: 36415; 71046; 74177; 74183; 74330; 76000; 76705; 80053; 81001; 82378; 82784; 82787; 83690; 85025; 86301; 88108; 88161; 88305; 88313; 93005; 97161; 97166; 97802; 99284; 99406; A9575; Q9967; A4216; J2405

== ENCOUNTER → 2025-06-02 | Outpatient (CLI) | payer MEDICARE, SELFPAY ==
[2025-06-02 09:45] LABS: Hematocrit 42.5 % (40-54); Hemoglobin 14.8 g/dL (13.0-16.5); Immature Granulocytes Count 0.040 X10^3/uL (0.0-0.0); Mean Corp Hgb Conc 34.8 g/dL (32-36); Mean Corpuscular Volume 84.5 fL (80-94); Mean Platelet Vol. 9.0 fl (6.2-12.0); NRBC Flagged by Analyzer 0 % (0-5); Platelet Count 411 K/mm3 (150-450); RBC Distribution Width CV 12.6 % (11.6-14.6); RBC Distribution Width SD 38.5 fl (35.1-43.9); Red Blood Count 5.03 M/mm3 (4.6-6.2); White Blood Count 9.0 K/mm3 (4.4-11.0)
[2025-06-02 10:26] LABS: AST(SGOT) 15 U/L (<=37); Alanine Aminotransfer ALT/SGPT 16 U/L (<=46); Albumin, Serum 4.2 g/dL (3.5-5.0); Alkaline Phosphatase 84 U/L (40-129); Anion Gap 12 (5-15); BUN 15 mg/dL (4-19); BUN/Creat Ratio 14.4 RATIO (10-20); Calcium,Total 9.4 mg/dL (7.6-11.0); Carbon Dioxide 26.4 mmol/L (21.0-32.0); Chloride 100 mmol/L (98-108); Globulin 3.1 g/dL (2.2-4.2); Glucose 145 mg/dL (70-99); Potassium 4.0 mmol/L (3.3-5.1)
[2025-06-02 10:57] LABS: Lipase 513 U/L (13-75)
== END | disposition home or self-care (01) ==
LOC: LAB 09:09
PROVIDERS: PCP Student in an Organized Health Care Education/Training Program; Referring Provider Nurse Practitioner Acute Care; Visit Provider Nurse Practitioner Acute Care
DX: K85.90 Acute pancreatitis without necrosis or infection, unspecified (principal); K86.1 Other chronic pancreatitis; K86.89 Other specified diseases of pancreas
CPT/HCPCS: 36415; 80053; 83690; 85025

== ENCOUNTER → 2025-06-17 | Outpatient (CLI) | payer MEDICARE, SELFPAY ==
[2025-06-17 09:55] LABS: Lipase 142 U/L (13-75)
[2025-06-17 10:16] LABS: AST(SGOT) 20 U/L (<=37); Alanine Aminotransfer ALT/SGPT 18 U/L (<=46); Albumin, Serum 4.2 g/dL (3.5-5.0); Alkaline Phosphatase 71 U/L (40-129); Anion Gap 10 (5-15); BUN 13 mg/dL (4-19); BUN/Creat Ratio 13.7 RATIO (10-20); Calcium,Total 9.3 mg/dL (7.6-11.0); Carbon Dioxide 26.3 mmol/L (21.0-32.0); Chloride 103 mmol/L (98-108); Globulin 2.6 g/dL (2.2-4.2); Glucose 176 mg/dL (70-99); Potassium 4.1 mmol/L (3.3-5.1)
== END | disposition home or self-care (01) ==
LOC: LAB 08:21
PROVIDERS: PCP Student in an Organized Health Care Education/Training Program; Referring Provider Nurse Practitioner Acute Care; Visit Provider Nurse Practitioner Acute Care
DX: K86.89 Other specified diseases of pancreas (principal); R10.13 Epigastric pain
CPT/HCPCS: 36415; 80053; 83690